=== PATIENT | male | born 1955 | race Two or more races ===

== ENCOUNTER 2016-05-29 14:50 | Outpatient (CLI) | payer OTHER ==
[2016-05-29] MEDS ORDERED: IOPAMIDOL-300 100 ML VIAL IVP ONE (17:45)
[2016-05-29] MEDS ORDERED: IOPAMIDOL-300 50 ML VIAL PO ONE (17:45)
== END 2016-05-29 14:51 | disposition home or self-care (01) ==
DX: K52.9 Noninfective gastroenteritis and colitis, unspecified (principal); Z98.890 Other specified postprocedural states
CPT/HCPCS: 74177; 82565; Q9967

== ENCOUNTER 2016-09-18 09:30 | Outpatient (CLI) | payer OTHER | END 2016-09-18 09:31 | disposition home or self-care (01) | DX: R53.83 Other fatigue (principal); Z12.5 Encounter for screening for malignant neoplasm of prostate; D64.9 Anemia, unspecified ==

== ENCOUNTER 2017-11-04 06:12 | Outpatient (CLI) | END 2017-11-04 06:13 | disposition home or self-care (01) | CPT/HCPCS: 36415; 74177; 82565; Q9967 ==

== ENCOUNTER 2018-03-11 08:41 | Day surgery (SDC) | payer OTHER ==
[~2018-03-11 08:41] MED LIST: ceFAZolin 2 GM/50 ML 2 GM/50 ML BAG IV ONE
[2018-03-11] MEDS ORDERED: LACTATED RINGERS 1,000 ML IV ONE ×2 (09:00→11:58)
[2018-03-11] MEDS ORDERED: BUPIVACAINE 0.5% PF 30 ML VIAL ONE (09:03)
--- NOTE | 2018-03-11 09:25 | ANESTHESIA ---
Pre-Anesthesia VS, & Labs - Diagnosis Right inguinal hernia - Procedure Right inguinal hernia repair Vital Signs: Temp Pulse Resp BP Pulse Ox 36.2 C L 71 16 155/80 H 98 03/11/18 09:03 03/11/18 09:03 03/11/18 09:03 03/11/18 09:03 03/11/18 09:03 Height 5 ft 9 in Weight (kg) 81.8 kg Body Mass Index 25.4 - NPO >8 hours Home Medications and Allergies Home Medications: Ambulatory Orders Gabapentin [Neurontin] 300 mg PO TID 03/05/18 traMADol [Ultram] 50 mg PO BID 03/05/18 Mv-Mn/FA/Vit K/Lycop/Lut/Coq10 [Daily Multivitamin Capsule] 1 each PO DAILY 03/11/18 Gabapentin [Neurontin] 300 mg PO TID 03/05/18 traMADol [Ultram] 50 mg PO BID 03/05/18 Mv-Mn/FA/Vit K/Lycop/Lut/Coq10 [Daily Multivitamin Capsule] 1 each PO DAILY 03/11/18 Allergies/Adverse Reactions: Allergies Allergy/AdvReac Type Severity Reaction Status Date / Time ketorolac tromethamine * Allergy Severe anaphylaxis, Verified 01/18/16 21:19 [From Toradol] loss of consciousness sulfamethoxazole Allergy Rash Verified 01/18/16 21:19 [From Septra] trimethoprim [From Septra] Allergy Rash Verified 01/18/16 21:19 Anes History & Medical History - Anesthetic History Anesthesia Complications: reports: No previous complications - Medical History Cardiovascular: reports: None Pulmonary: reports: None Gastrointestinal: reports: Ulcers, Other (Had perforated ulcer with septic shock and cardiac arrest.) Urinary: reports: None, Other (history of prostate cancer) Neuro: reports: None Musculoskeletal: reports: Osteoporosis, Chronic back pain Endocrine/Autoimmune: reports: None Blood Disorders: reports: None Skin: reports: None Smoking Status: Current every day smoker (50 pk year history) Psychosocial: reports: No issues indicated - Surgical History General: Gastric surgery (perforated ulcer repair), Colonoscopy Urologic: Prostatic surgery Orthopedic: Other (Right femur fracture/ IM sathish) Exam General: Alert, Oriented x3, Cooperative, No acute distress Dental: Dentures full Upper Mouth Openin Fingerbreadth Neck Mobility: Normal Mallampati classification: II Thyromental Distance: 4-6 cm Respiratory: Lungs clear, Normal breath sounds, No respiratory distress, No accessory muscle use Cardiovascular: Regular rate, Normal S1, Normal S2, No murmurs Mental/Cognitive Status: Alert/Oriented X3, Normal for patient Cognitive Status: Within normal limits Plan Anesthesia Type: General Consent for Procedure(s) Verified and Reviewed: Yes Code Status: Attempt Resuscitation ASA classification: 2-Mild systemic disease Is this case an emergency?: No
[2018-03-11] MEDS ORDERED: PROPOFOL 200 MG/20 ML VIAL IVP ONE (10:00)
[2018-03-11] MEDS ORDERED: LIDOCAINE-MPF 2% 5 ML VIAL IM ONE (10:00)
[2018-03-11] MEDS ORDERED: fentaNYL 100 MCG/2 ML VIAL IVP ONE (10:00)
[2018-03-11] MEDS ORDERED: DEXAMETHASONE 4 MG/ML VIAL IVP ONE (10:00)
[2018-03-11] MEDS ORDERED: ONDANSETRON 4 MG/2 ML VIAL IVP ONE (10:00)
[2018-03-11] MEDS ORDERED: MIDAZOLAM 2 MG/2 ML VIAL IVP ONE (10:00)
[2018-03-11] MEDS ORDERED: BUPIVACAINE 0.5% PF 30 ML VIAL INFIL ONE (10:28)
[2018-03-11] MEDS ORDERED: HYDROcod/ACETAM 5/325 MG TABLET PO PRN (11:24)
[2018-03-11] MEDS ORDERED: HYDROmorphone 0.5 MG/0.5 ML SYRINGE IVP PRN (11:24)
[2018-03-11] MEDS ORDERED: ONDANSETRON 4 MG/2 ML VIAL IVP PRN (11:24)
--- NOTE | 2018-03-11 11:24 | OPERATIVE REPORT ---
Operative Report - General Procedure Date: 03/11/18 Planned Procedure: Right inguinal herniorrhaphy Pre-Op Diagnosis: Right inguinal hernia Procedure Performed: Right indirect inguinal herniorrhaphy with mesh and excision cord lipoma Post Op Diagnosis: Right indirect inguinal hernia and cord lipoma - Procedure Note Primary Surgeon: Lonnie Wallace MD Anesthesia Provider: Tanvi Burch CRNA Anesthesia Technique: General ET tube, Local (30 mL of half percent Marcaine) IV Fluids (mL): 600 Estimated Blood Loss (mL): 5 Complications: None. - Other Other Information/Narrative: OPERATIVE DESCRIPTION/REPORT: After verbal and written informed consent was obtained detailing the risks of infection, bleeding requiring transfusion with its risks, nerve injury, and , and after I met with the patient confirming the surgery and the site of the surgery and after initialing the site of the surgery with a surgical marker, the patient was brought to the operative suite and placed supine on the operating table. Great care was taken to avoid pressure points to prevent pressure necrosis or nerve injury. Monitoring devices were applied along with TEDs and pneumatic compressive stockings (to prevent DVT). The patient received preoperative antibiotics for surgical prophylaxis. Tanvi Burch CRNA sedated and anesthetized the patient for the entire procedure. The patient was prepped and draped in the usual sterile manner. With the patient draped my initials were clearly visible. A "time in" then confirmed that the patient was identified with 3 identifiers (name, date and medical record number), the history and physical was in the chart, the signed consent confirming the procedure was in the chart, the patient was in the correct position, the aforementioned prophylactic measures were in place or given, we had the correct personnel and equipment to complete the procedure and that anesthesia, surgery and nursing were given an opportunity to express any concerns. With the agreement of everyone in the room, we proceeded with the operation. A standard inguinal incision was made and dissection was carried down to the external oblique aponeurosis using a combination of Metzenbaum scissors and Bovie electrocautery. The external oblique aponeurosis was cleared of overlying adherent tissue, and the external ring was delineated. The external oblique was the incised with a scalpel and this incision was carried out to the external ring using Metzenbaum scissors. Having exposed the inguinal canal, the cord structures were from the canal using blunt dissection, and a Apple drain was placed around the cord structures at the level of the pubic tubercle. This [place] drain was then used to retract the cord structures as needed. Adherent cremasteric muscle was dissected free from the cord using Bovie electrocautery. The cord was then explored using a combination of sharp and blunt dissection, and the sac was found anteromedially to the cord structures. The sac was dis sected free from the cord structures using a combination of blunt dissection and Bovie electrocautery. Once preperitoneal fat was encountered, the dissection stopped and the sac was high ligated with a 2-0 PDS, transected, the stump cauterized and allowed to retract back into the abdominal cavity and a medium Covidien plug (Ref# [id number], Lot# [id number], use date 2022-06-12) inserted into the internal ring. The plug was secured to the internal ring by interrupted 2-0 PDS sutures. The Covidien enlay patch was then placed on the floor of the inguinal canal and secured in place using interrupted 0 PDS sutures to the conjoined tendon superiorly, pubic tubercle medially, and shelving edge inferiorly. By reinforcing the floor with the enlay patch, a new internal ring was thus formed. A medium cord lipoma was noted and excised using serial application of Bovie electrocautery. Hemostasis was noted to be present. The Apple drain was removed. The wound was then irrigated using sterile mayra ine, and hemostasis was obtained using Bovie electrocautery. The incision in the external oblique was approximated using a 3-0 Vicryl in a running fashion, thus reforming the external ring. The fascia and skin was then injected with the 1/2% marcaine for assisted pain control. The skin incision was approximated with 4-0 Monocryl in a subcuticular fashion. The skin was prepped with benzoin and steristrips were applied. At this point a time out was performed that confirmed that all the counts were correct, the procedure that was performed, the blood loss, the IV fluids administered, and the patients condition. A dressing was then applied. Gentle downward traction ensured that the testes were well seated in the scrotum. Having tolerated the procedure well, the patient was taken to short stay in good and stable condition. Dragjossie disclaimer: This document was created in part using voice recognition technology. Because of the inherent limitations of the system ([employer]'s Dragon Dictate user manual states that the licensee understands that speech recognition is a statistical process and that recognition errors are inherent in the process), occasional same sounding word substitutions and grammatical errors do occur and persist despite proofreading. Please read this document for context.
[2018-03-11] MEDS: fentaNYL 100 MCG/2 ML VIAL ONE ×2 (11:30→11:48)
[2018-03-11] MEDS ORDERED: ACETAMINOPHEN 1,000 MG/100 ML 100 ML IV ONE ×2 (11:38→12:34)
[2018-03-11] MEDS ORDERED: HYDROcod/ACETAM 5/325 MG TABLET ONE (12:03)
[2018-03-11 13:08] VITALS: BP 147/82
== END 2018-03-11 08:42 | disposition home or self-care (01) ==
LOC: SDS 08:41
PROVIDERS: ATTEND Surgery
PROC: 0VBF0ZZ Excision of Right Spermatic Cord, Open Approach (ICD-10-PCS; 2018-03-11)
PROC: 0YU50JZ Supplement Right Inguinal Region with Synthetic Substitute, Open Approach (ICD-10-PCS; principal; 2018-03-11 09:45)
DX: K40.90 Unilateral inguinal hernia, without obstruction or gangrene, not specified as recurrent (principal); D17.6 Benign lipomatous neoplasm of spermatic cord; F17.210 Nicotine dependence, cigarettes, uncomplicated; Z85.46 Personal history of malignant neoplasm of prostate
CPT/HCPCS: 49505; 55520; A9270; J0131; J0690; J7120

== ENCOUNTER 2018-06-28 13:14 | Emergency (ER) | payer OTHER ==
--- NOTE | 2018-06-28 14:07 | XRAY Report ---
Reason: sob Procedure Date: 06/28/2018 Accession Number: [id number] / [id number] Procedure: XR - Chest 2 View X-Ray CPT Code: 44276 FULL RESULT: EXAM: CHEST RADIOGRAPHY EXAM DATE: 06/28/2018 01:38 PM. CLINICAL HISTORY: Shortness of breath. COMPARISON: CHEST 2 VIEW PA/LAT 02/01/2015 12:46 PM. TECHNIQUE: 2 views. FINDINGS: Lungs/Pleura: No focal opacities evident. No pleural effusion. No pneumothorax. Normal volumes. Mediastinum: Heart and mediastinal contours are unremarkable. Other: There are smooth anterior bridging osteophytes of the lower thoracic spine compatible with diffuse idiopathic skeletal hyperostosis. No acute osseous abnormality. IMPRESSION: No acute cardiopulmonary abnormality. RADIA
--- NOTE | 2018-06-28 14:23 | ED Physician Documentation ---
PD HPI URI - Stated complaint Stated Complaint: SOA/CHILLS - Chief complaint Chief Complaint: Resp - History obtained from History obtained from: Patient - History of Present Illness Timing - onset: How many days ago (4) Timing duration: Days (4) Timing details: Abrupt onset, Still present Associated symptoms: Productive cough, Chest pain (hurts with coughing.), Dyspnea. No: Fever Contributing factors: COPD / asthma. No: Sick contact Worsened by: Activity Similar symptoms before: Has not had sx before Review of Systems Constitutional: reports: Myalgias. denies: Fever Nose: denies: Rhinorrhea / runny nose, Congestion Throat: denies: Sore throat Cardiac: reports: Chest pain / pressure (hurts with coughing). denies: Palpitations, Pedal edema, Calf pain Respiratory: reports: Dyspnea, Cough, Wheezing GI: denies: Nausea, Vomiting, Diarrhea Skin: denies: Rash Neurologic: reports: Generalized weakness. denies: Focal weakness, Numbness PD PAST MEDICAL HISTORY - Past Medical History Cardiovascular: None Respiratory: None Neuro: None Endocrine/Autoimmune: None GI: Ulcers, Other (Had perforated ulcer with septic shock and cardiac arrest.) : None, Other (history of prostate cancer) HEENT: None Psych: None Musculoskeletal: Osteoporosis, Chronic back pain Derm: None - Past Surgical History Past Surgical History: Yes General: Gastric surgery (perforated ulcer repair), Colonoscopy Ortho: Other (Right femur fracture/ IM sathish) - Present Medications Home Medications: Ambulatory Orders Medication Instructions Recorded Confirmed Gabapentin [Neurontin] 300 mg PO TID 03/05/18 03/11/18 traMADol [Ultram] 50 mg PO BID 03/05/18 03/11/18 Mv-Mn/FA/Vit K/Lycop/Lut/Coq10 1 each PO DAILY 03/11/18 03/11/18 [Daily Multivitamin Capsule] Albuterol Sulf [Ventolin Hfa 2 - 3 puffs INH Q4HR PRN #1 inhaler 06/28/18 Inhaler] Benzonatate [Tessalon Perle] 100 - 200 mg PO TID PRN #30 capsule 06/28/18 Dexamethasone [Decadron] 4 mg PO DAILY #5 tablet 06/28/18 Doxycycline Hyclate 100 mg PO BID #14 capsule 06/28/18 Ondansetron Odt [Zofran] 4 mg TL Q6H PRN #10 tablet 06/28/18 - Allergies Allergies/Adverse Reactions: Allergies Allergy/AdvReac Type Severity Reaction Status Date / Time ketorolac tromethamine * Allergy Severe anaphylaxis, Verified 06/28/18 13:24 [From Toradol] loss of consciousness sulfamethoxazole Allergy Rash Verified 06/28/18 13:24 [From Septra] trimethoprim [From Septra] Allergy Rash Verified 06/28/18 13:24 - Social History Does the pt smoke?: Yes Smoking Status: Current every day smoker (50 pk year history) Does the pt drink ETOH?: No Does the pt have substance abuse?: No - Immunizations Immunizations are current?: Yes PD ED PE NORMAL - Vitals Vital signs reviewed: Yes - General General: Alert and oriented X 3, No acute distress, Well developed/nourished - HEENT HEENT: Pharynx benign - Neck Neck: Supple, no meningeal sign, No adenopathy - Cardiac Cardiac: RRR, No murmur - Respiratory Respiratory: No: Clear bilaterally (diffuse moderate wheezing. with some coarse wet sounds right perihilar area. No crackles in the bases. ) - Abdomen Abdomen: Soft, Non tender - Derm Derm: Normal color, Warm and dry - Extremities Extremities: No tenderness to palpate, Normal ROM s pain, No edema, No calf tenderness / cord - Neuro Neuro: Alert and oriented X 3, No motor deficit, Normal speech Results - Vitals Vitals: Oxygen O2 Source Room air - Labs Labs: Laboratory Tests 06/28/18 13:28 Influenza A (Rapid) Negative Influenza B (Rapid) Negative - Rads (name of study) chest xray Radiology: Prelim report reviewed (no pneumonia), EMP read contemporaneously, See rad report PD MEDICAL DECISION MAKING - ED course Complexity details: reviewed results, re-evaluated patient (improved with nebs and feeling better breathing. No clinical signs of CHF and has mainly cough and wheeze. ), considered differential (could be viral and likely RSV or such, but symptoms mainly bronchial with wheezing, so consider bacterial instead. ), d/w patient Departure - Departure Disposition: 01 Home, Self Care Clinical Impression: Flu-like symptoms, Bronchitis Condition: Stable Record reviewed to determine appropriate education?: Yes Instructions: ED Upper Resp Infec Abx Tx Follow-Up: Angel Corral MD [Primary Care Provider] - Prescriptions: Albuterol Sulf [Ventolin Hfa Inhaler] 2 - 3 puffs INH Q4HR PRN #1 inhaler PRN Reason: Shortness Of Air/Wheezing Benzonatate [Tessalon Perle] 100 - 200 mg PO TID PRN #30 capsule PRN Reason: Cough Dexamethasone [Decadron] 4 mg PO DAILY #5 tablet Doxycycline Hyclate 100 mg PO BID #14 capsule Ondansetron Odt [Zofran] 4 mg TL Q6H PRN #10 tablet PRN Reason: Nausea / Vomiting Comments: It sounds flulike the illness you have. This commonly is viral though with the particular cough and wheeze that you are having, we would be concerned for potential bacterial bronchitis as well. Drink lots of fluids. Ondansetron if needed for nausea. Tessalon for cough. Use an albuterol inhaler 2-3 puffs 4 times a day for the wheezing and trouble breathing and extra times as needed if you are feeling tight breathing. Decadron steroid for the inflammation and of the airways will help quite a bit daily for 5 days. Doxycycline antibiotic for potential bacterial infection as directed. Recheck if not improving over the next 2-3 days and return sooner if worsening. Discharge Date/Time: 06/28/18 16:37
[2018-06-28] MEDS ORDERED: ALBUTEROL NEB 2.5 MG/3 ML INH STA (14:30)
[2018-06-28] MEDS ORDERED: DIPHENOX/ATROPINE 2.5/0.025 MG TABLET PO STA (14:30)
[2018-06-28] MEDS ORDERED: DEXAMETHASONE 10 MG/ML VIAL PO STA (14:30)
[2018-06-28] MEDS ORDERED: ONDANSETRON ODT 4 MG TABLET TL STA (14:30)
[2018-06-28] MEDS ORDERED: BENZONATATE 100 MG CAPSULE PO STA (14:30)
[2018-06-28] MEDS ORDERED: IPRATROPIUM/ALBUTEROL 3 ML NEB INH STA (15:45)
[2018-06-28] MEDS ORDERED: DOXYCYCLINE 100 MG TABLET PO STA (15:45)
[2018-06-28 16:37] VITALS: BP 106/66
== END 2018-06-28 16:37 | disposition home or self-care (01) ==
LOC: ED 13:14
DX: J40 Bronchitis, not specified as acute or chronic (principal); F17.200 Nicotine dependence, unspecified, uncomplicated
CPT/HCPCS: 71046; 87275; 87276; 94640; 94664; 99283; A9270; Q0162

== ENCOUNTER 2018-07-02 09:43 | Inpatient (IN) | payer OTHER ==
[2018-07-02] MEDS ORDERED: SODIUM CHLORIDE 0.9% 1,000 ML IV STA (09:58)
--- NOTE | 2018-07-02 10:25 | ED Physician Documentation ---
History of Present Illness - Stated complaint Stated Complaint: UNABLE TO EAT/WEAKNESS - Chief complaint Chief Complaint: Resp - History obtained from History obtained from: Patient - History of Present Illness Timing: How many days ago (several) Pain level max: 0 Pain level now: 0 - Additonal information Additional information: 62-year-old male presents to the emergency department stating he has been sick for the past week or so, seen here, diagnosed with bronchitis and placed on doxycycline. States he is feeling worse and worse. Has not been eating and drinking for the past week. States he feels very weak now. Nothing makes it better or worse Review of Systems Ten Systems: 10 systems reviewed and negative Constitutional: reports: Fever (Subjective). denies: Chills Nose: reports: Rhinorrhea / runny nose, Congestion Throat: denies: Sore throat Cardiac: denies: Chest pain / pressure Respiratory: reports: Cough, Wheezing GI: denies: Abdominal Pain, Nausea, Vomiting, Diarrhea Skin: denies: Rash Musculoskeletal: denies: Neck pain, Back pain Neurologic: denies: Headache PD PAST MEDICAL HISTORY - Past Medical History Cardiovascular: None Respiratory: None Neuro: None Endocrine/Autoimmune: None GI: Ulcers, Other : None, Other HEENT: None Psych: None Musculoskeletal: Osteoporosis, Chronic back pain Derm: None - Past Surgical History Past Surgical History: Yes General: Gastric surgery, Colonoscopy Ortho: Other - Present Medications Home Medications: Ambulatory Orders Medication Instructions Recorded Confirmed Gabapentin [Neurontin] 300 mg PO BID 03/05/18 07/02/18 traMADol [Ultram] 50 mg PO TID PRN 03/05/18 07/02/18 Mv-Mn/FA/Vit K/Lycop/Lut/Coq10 1 each PO DAILY 03/11/18 07/02/18 [Daily Multivitamin Capsule] Albuterol Sulf [Ventolin Hfa 2 puffs INH Q4HR PRN 07/02/18 07/02/18 Inhaler] Lisinopril [Zestril] 10 mg PO DAILY 07/02/18 07/02/18 Triamterene/Hydrochlorothiazid 1 each PO DAILY 07/02/18 07/02/18 [Triamterene-Hctz 37.5-25 mg Cp] - Allergies Allergies/Adverse Reactions: Allergies Allergy/AdvReac Type Severity Reaction Status Date / Time ketorolac tromethamine * Allergy Severe anaphylaxis, Verified 06/28/18 13:24 [From Toradol] loss of consciousness sulfamethoxazole Allergy Rash Verified 06/28/18 13:24 [From Septra] trimethoprim [From Septra] Allergy Rash Verified 06/28/18 13:24 - Social History Does the pt smoke?: Yes Smoking Status: Current every day smoker Does the pt drink ETOH?: No Does the pt have substance abuse?: No - Immunizations Immunizations are current?: Yes PD ED PE NORMAL - Vitals Vital signs reviewed: Yes - General General: Alert and oriented X 3, No acute distress, Well developed/nourished - HEENT HEENT: PERRL, Ears normal, Pharynx benign, Other (Dry lips and tongue) - Neck Neck: Supple, no meningeal sign - Cardiac Cardiac: RRR - Respiratory Respiratory: No respiratory distress, Other (Wheezing bilaterally) - Abdomen Abdomen: Soft, Non tender, Non distended - Derm Derm: Warm and dry, No rash - Extremities Extremities: No edema, No calf tenderness / cord - Neuro Neuro: Alert and oriented X 3 - Psych Psych: Normal mood, Normal affect Results - Vitals Vitals: Vital Signs - 24 hr 07/02/18 07/02/18 07/02/18 09:49 11:09 11:21 Temperature 35.9 C L Heart Rate 86 76 91 Respiratory 22 18 18 Rate Blood Pressure 105/69 125/85 H O2 Saturation 98 98 07/02/18 12:33 Temperature Heart Rate 94 Respiratory 16 Rate Blood Pressure 128/86 H O2 Saturation 98 Oxygen O2 Source Room air - Labs Labs: Laboratory Tests 07/02/18 07/02/18 07/02/18 10:29 10:29 11:08 WBC 16.3 H RBC 5.40 Hgb 16.4 Hct 47.3 MCV 87.7 MCH 30.4 MCHC 34.6 RDW 14.3 Plt Count 326 MPV 7.8 Neut # (Auto) 14.7 H Lymph # (Auto) 0.9 L Sac # (Auto) 0.6 Eos # (Auto) 0.0 Baso # (Auto) 0.0 Absolute Nucleated RBC 0.00 Nucleated RBC % 0.0 Manual Slide Review Indicated WBC Morphology Platelet Estimate NORMAL (130-450,000) Platelet Morphology NORMAL APPEARANCE RBC Morph Micro Appear NORMAL APPEARANCE Sodium 131 L Potassium 4.5 Chloride 96 L Carbon Dioxide 13 L Anion Gap 22.0 H BUN 184 H* Creatinine 6.8 H Estimated GFR (MDRD) 8 L Glucose 112 H Calcium 9.4 Total Bilirubin 0.7 AST 19 ALT 20 Alkaline Phosphatase 76 Total Protein 9.4 H Albumin 4.8 Globulin 4.6 H Albumin/Globulin Ratio 1.0 Lipase 37 Urine Color YELLOW Urine Clarity CLEAR Urine pH 5.0 Ur Specific [place] 1.025 Urine Protein NEGATIVE Urine Glucose (UA) NEGATIVE Urine Ketones NEGATIVE Urine Occult Blood SMALL H Urine Nitrite NEGATIVE Urine Bilirubin NEGATIVE Urine Urobilinogen 0.2 (NORMAL) Ur Leukocyte Esterase NEGATIVE Urine RBC 0-5 Urine WBC 0-3 Ur Squamous Epith Cells RARE Squamous Urine Bacteria Rare Ur Microscopic Review INDICATED Urine Culture Comments NOT INDICATED 07/02/18 13:29 WBC RBC Hgb Hct MCV MCH MCHC RDW Plt Count MPV Neut # (Auto) Lymph # (Auto) Sac # (Auto) Eos # (Auto) Baso # (Auto) Absolute Nucleated RBC Nucleated RBC % Manual Slide Review WBC Morphology Platelet Estimate Platelet Morphology RBC Morph Micro Appear Sodium 135 Potassium 4.6 Chloride 108 Carbon Dioxide 13 L Anion Gap 14.0 H BUN 173 H* Creatinine 6.1 H Estimated GFR (MDRD) 9 L Glucose 136 H Calcium 8.1 L Total Bilirubin AST ALT Alkaline Phosphatase Total Protein Albumin Globulin Albumin/Globulin Ratio Lipase Urine Color Urine Clarity Urine pH Ur Specific [place] Urine Protein Urine Glucose (UA) Urine Ketones Urine Occult Blood Urine Nitrite Urine Bilirubin Urine Urobilinogen Ur Leukocyte Esterase Urine RBC Urine WBC Ur Squamous Epith Cells Urine Bacteria Ur Microscopic Review Urine Culture Comments PD MEDICAL DECISION MAKING - ED course Complexity details: reviewed results, re-evaluated patient, considered differential, d/w patient, d/w family ED course: 62-year-old male who presents to the emergency department with what appears to be severe dehydration leading to much more severe acute renal failure and uremia. Discussed the case with Dr. Del Real for admission he request repeat electrolytes prior to admission. This was performed and they are improving as expected, therefore will admit the patient here. Bladder scan revealed an empty bladder. No evidence of urinary retention. Patient admitted This document was made in part using voice recognition software. While efforts are made to proofread this document, sound alike and grammatical errors may occur. Departure - Departure Disposition: [facility] DC/Xfer Clinical Impression: Uremia Acute renal failure Qualifiers: Acute renal failure type: unspecified Qualified Code(s): N17.9 - Acute kidney failure, unspecified Condition: Stable Discharge Date/Time: 07/02/18 14:54
[2018-07-02 10:44] LABS: BASOPHILS % (AUTO) 0.2 %; HGB - HEMOGLOBIN 16.4 g/dL (14.0-18.0); LYMPHOCYTES # (AUTO) 0.9 10^3/uL (1.5-3.5); LYMPHOCYTES % (AUTO) 5.4 %; MEAN CORPUSCULAR HEMOGLOBIN 30.4 pg (27.0-31.0); MEAN CORPUSCULAR HGB CONC 34.6 g/dL (32.0-36.0); MEAN CORPUSCULAR VOLUME 87.7 fL (80.0-94.0); MEAN PLATELET VOLUME 7.8 fL (7.4-11.4); MONOCYTES # (AUTO) 0.6 10^3/uL (0.0-1.0); MONOCYTES % (AUTO) 3.8 %; NEUTROPHILS # (AUTO) 14.7 10^3/uL (1.5-6.6); NEUTROPHILS % (AUTO) 90.6 %; PLT - PLATELET COUNT 326 10^3/uL (130-450); RED CELL DISTRIBUTION WIDTH 14.3 % (12.0-15.0); WHITE BLOOD COUNT 16.3 x10^3/uL (4.8-10.8)
[2018-07-02] MEDS ORDERED: IPRATROPIUM/ALBUTEROL 3 ML NEB INH STA (10:59)
[2018-07-02] MEDS ORDERED: predniSONE 20 MG TABLET PO STA (10:59)
[2018-07-02 11:00] LABS: PLATELET ESTIMATE, MANUAL NORMAL (130-450,000) (NORMAL); PLATELET MORPHOLOGY NORMAL APPEARANCE (NORMAL); RBC MORPHOLOGY (MULTIPLE) NORMAL APPEARANCE (NORMAL)
[2018-07-02 11:08] LABS: ALBUMIN 4.8 g/dL (3.2-5.5); BILIRUBIN,TOTAL 0.7 mg/dL (0.2-1.0); CALCIUM 9.4 mg/dL (8.5-10.3); CREATININE 6.8 mg/dL (0.6-1.2); TOTAL PROTEIN 9.4 g/dL (6.7-8.2)
[2018-07-02 11:17] LABS: BILIRUBIN,URINE NEGATIVE (NEGATIVE); GLUCOSE, URINE (UA) NEGATIVE (NEGATIVE); KETONES,URINE (UA) NEGATIVE (NEGATIVE); LEUKOCYTE ESTERASE, URINE NEGATIVE (NEGATIVE); NITRITE,URINE NEGATIVE (NEGATIVE); OCCULT BLOOD,URINE SMALL (NEGATIVE); PROTEIN,URINE NEGATIVE (NEGATIVE); UROBILINOGEN,URINE 0.2 (NORMAL) E.U./dL (NORMAL)
[2018-07-02 11:19] LABS: CLARITY,URINE CLEAR (CLEAR)
[2018-07-02 11:22] LABS: BACTERIA,URINE Rare /HPF (None Seen); RBC,URINE 0-5 /HPF (0-5); SQUAMOUS EPITHELIAL CELL,UR RARE Squamous (<= Few)
[2018-07-02] MEDS ORDERED: SODIUM CHLORIDE 0.9% 1,000 ML IV ONE (11:33)
[2018-07-02] MEDS ORDERED: LACTATED RINGERS 1,000 ML IV STA (11:37)
[2018-07-02 13:54] LABS: CALCIUM 8.1 mg/dL (8.5-10.3); CREATININE 6.1 mg/dL (0.6-1.2)
[2018-07-02] MEDS ORDERED: SODIUM CHLORIDE FLUSH 0.9% 10 ML SYRINGE IVP PRN (14:06)
--- NOTE | 2018-07-02 14:18 | HISTORY & PHYSICAL EXAMINATION ---
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 He was diagnosed with a viral syndroe in Ed 06/28 (althogh Rapid antigen test negative, no molecular test her) and was discharged with tessalon for cough, albuterol inhaler prn, and doxycycline. (He states now that he also had bad diarrhea at that time which has resolved) Of note He did not have labs drawn at that time, CXR neg acute at that time, no hypotension, nor fever atthat time He presents to the ED today with persistent anorexia "not eating or drinking much", no nausa / vomiting , no fever, chills, no persistent diarrhea, "just hasnt felt better since 06/28 "thought I was dehydrated". No near syncope or light headedness Labs in the ED remarkable for acute kidney injury with BUn/Cr 184/ 6.8, (Of note on 11/04/17 Cr 1.1)normal potassium, hyponatremia Na 131, Co213 w/ initial anion gap 22, WBC 16K w/o left shift, no findings c/w infection, Urnalysis in ED w/SG 1.025, small occult blood, no sigynificant pyuria, nor bacuturia microscopic not done (will order to check for casts) RE chronic medical problems that put patient at risk; no DM, controlled HTN (and as above recent normal Cr) Of note re culprit meds; Patient is on thiazide and ACEI Denies NSAIDS, no other nephrotoxins, After 3 liters in ED , he is demonstrating some improvement w/ BuN/Cr 173/6.1, and althoguh bicarb still 13 after 3L, Anion gap w/ chloride repletion closing; now 14 No known CHF that would cause poor forward flow (Echo 2014; EF 55-65%, mild concentric LVH, Could not adequatly asses fro WMA, no significant vlvular dysfxn at that time History - Past Medical History Cardiovascular: reports: None, Hypertension Respiratory: reports: None, Other (recent ? bronchitis as per HPI (06/28)) Neuro: reports: None Endocrine/Autoimmune: reports: None GI: reports: Ulcers (Bleeding ulcer / + H pylori 2014 requred surgery, with cardiac arrest), Other (incarcerated ventral incision hernia 02/2016) : reports: None, Other (Prostate Cancer s/p radiation seeds) HEENT: reports: None Psych: reports: None Musculoskeletal: reports: Osteoporosis, Chronic back pain Derm: reports: None MRSA Hx?: No - Past Surgical History General: reports: Gastric surgery, Colonoscopy Ortho: reports: Other - Family & Social History Living arrangement: At home, Other (Has a friend who is a nurse) Living Situation: Alone Social History Notes: From [place], has lived on [facility] since mid , was in the [employer] here, 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 Has 2 daughters, a few grand children who he baby sits for regularly (without fatigue, one in kindergarden, one a toddler. "cant find the right one" - Substance History Use: Uses substance without health or social issues: Tobacco (quit by use of Chantix this year, ~ 40 yrs of 1/2 PPD), Other (NO alchohol, no illicits) - POLST Patient has POLST: No Meds/Allgy - Home Medications Home Medications: Ambulatory Orders Medication Instructions Recorded Confirmed Gabapentin [Neurontin] 300 mg PO BID 03/05/18 07/02/18 traMADol [Ultram] 50 mg PO TID PRN 03/05/18 07/02/18 Mv-Mn/FA/Vit K/Lycop/Lut/Coq10 1 each PO DAILY 03/11/18 07/02/18 [Daily Multivitamin Capsule] Albuterol Sulf [Ventolin Hfa 2 puffs INH Q4HR PRN 07/02/18 07/02/18 Inhaler] Lisinopril [Zestril] 10 mg PO DAILY 07/02/18 07/02/18 Triamterene/Hydrochlorothiazid 1 each PO DAILY 07/02/18 07/02/18 [Triamterene-Hctz 37.5-25 mg Cp] - Allergies Allergies/Adverse Reactions: Allergies Allergy/AdvReac Type Severity Reaction Status Date / Time ketorolac tromethamine * Allergy Severe anaphylaxis, Verified 06/28/18 13:24 [From Toradol] loss of consciousness sulfamethoxazole Allergy Rash Verified 06/28/18 13:24 [From Septra] trimethoprim [From Septra] Allergy Rash Verified 06/28/18 13:24 Review of Systems - Constitutional Constitutional: reports: Malaise, Other (no acute change in activity tolerance (other than since last week); 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 denies: Ear pain, Vertigo - Cardiovascular Cariovascular: denies: Palpitations, Chest pain, Edema, Lightheadedness, Syncope - Respiratory Respiratory: reports: Sputum production (rare cough, "maybe once/ day"). denies: Wheezing, Orthopnea, SOB at rest - Gastrointestinal Gastrointestinal: reports: Poor appetite (continues anorexic since last week, but no NV). denies: Abdominal pain, Abdominal distention, Constipation, Diarrhea, Nausea, Vomiting - Genitourinary Genitourinary: denies: Dysuria, Frequency, Urgency, Hematuria - Musculoskeletal Musculoskeletal: reports: Other (chronic pain of heels and hips/ on gabapentin (long work in construction)) - Neurological Neurological: reports: General weakness. denies: Focal weakness, Headache, Dizziness - Psychiatric Psychiatric: denies: Depression, Anxiety - Endocrine Endocrine: denies: Polyuria, Polydypsia, Intolerance to cold, Intolerance to heat Exam - Vital Signs Reviewed Vital Signs: Yes Vital Signs: Vital Signs x48h Temp Pulse Resp BP Pulse Ox 07/02/18 12:33 94 16 128/86 H 98 07/02/18 11:21 91 18 07/02/18 11:09 76 18 125/85 H 98 07/02/18 09:49 35.9 C L 86 22 105/69 98 afebrile, HR 90's, 105/69 on presentation,; 142/77 after 3 liters - Physical Exam General Appearance: positive: No acute distress, Other (awake, alert, non toxic (feels a bit better after 3L)) Eyes Bilateral: positive: PERRL, EOMI, Other (nonmuddy sclera) Neck: positive: Nml inspection. negative: Lymphadenopathy (R), Lymphadenopathy (L), Carotid bruit Respiratory: positive: No respiratory distress (Unlabored resps on Room Air, no cough, Sl inspiratory low pitched crackles L base) Cardiovascular: positive: Regular rate & rhythm, No murmur Abdomen: positive: Nml bowel sounds, No distention, Other (Well healed midline scar from gastric resection). negative: Tenderness Back: negative: CVA tenderness (R), CVA tenderness (L) Skin: positive: Warm, Dry. negative: Diaphoresis, Pallor Extremities: negative: Pedal edema Neurologic/Psychiatric: positive: Oriented x3, Motor nml, Sensation nml, Mood/affect nml, Other (extraocular movements intact, CN 2-12 intact) Conclusion/Plan - Problem List (1) Acute kidney injury Conclusion/Plan: Most recent labs are from October 2017, so , difficult to tell if this is acute; related to recent ? viral illness last week Work up thus far suggestive of prerenal SOHAN due to acute ?viral illness, and had Gi losses last week s well w/ diarhea last week/ not taking PO well, BUt contininuing to take ACEI and HCTZ THere are RARE case reports of SOHAN w/ Doxycycline which he took this week but DOUBT cause (can cause elvated BUN but doubt contributing to this case) No findings suggesive of volume overload to suggest CKD / Demonstrating some response to IV volume repletion Check renal ultrasound (hisotry of CA Prostate to r/o obstructive uropathy) Continue IVF IF not continuing to improve w/ volume will send urine lytes (e.g Na, Cr ) check urine microscopic ? casts Recheck in AM HOLD HCTZ and ACEI! No NSAIDs (not taking at home) Do not see need to check echo re: ? poor systolic function as exam/ history otherwise NOT suggestive of CHF/HFrEF VTE prophylaxis; no medical (Rx) given reduced GFR SCD's (2) Hypertension Conclusion/Plan: reasonable control holding ACI, HCTZ allow relative hypertension for renal perfusion Qualifiers: Hypertension type: other secondary hypertension Qualified Code(s): I15.8 - Other secondary hypertension (3) History of prostate cancer Conclusion/Plan: doubt relevant, but checking us doubt obstruction since able to void with hydration (but BUN Cr enough that need to chek for hydronephrosis) (4) Peripheral neuropathy Conclusion/Plan: Holding gabapentin given reduced GFR Likely will be able to resume at home dose once renal function back to baseline (5) Leukocytosis Conclusion/Plan: No findings c/w infection, no fever, hemodynamically stable, lactate not measured, no bandemeia, suspect related to volume depletion. recheck in am suspect will improve weith volume - Lab Results Fish Bones: 07/03/18 05:25 07/03/18 05:25 - Diagnostic Imaging Results Diagnostic Imaging Results Comments: Chest X ray 06/28; no acute cardiopulmonary abnormality
[2018-07-02] MEDS ORDERED: SODIUM CHLORIDE 0.9% 1,000 ML IV SCH (15:00)
[2018-07-02] MEDS: SODIUM CHLORIDE FLUSH 0.9% 10 ML SYRINGE IVP SCH (16:00)
[2018-07-02] MEDS ORDERED: ONDANSETRON 4 MG/2 ML VIAL IVP PRN (20:09)
[2018-07-02] MEDS ORDERED: PROCHLORPERAZINE INJ 10 MG in SODIUM CHLORIDE 0.9% 50 ML IV PRN (22:17)
[2018-07-02] MEDS: SODIUM CHLORIDE 0.9% 1,000 ML IV SCH (22:45)
[2018-07-02] MEDS: PANTOPRAZOLE 40 MG VIAL IV SCH (23:49)
[2018-07-02] MEDS: GI COCKTAIL 120 ML BOTTLE PO PRN (23:59)
--- NOTE | 2018-07-03 00:22 | Ultrasound Report ---
Reason: SOHAN, hx prostate cA , eval 4 hydroneph, ? obstruct Procedure Date: 07/02/2018 Accession Number: [id number] / [id number] Procedure: US - Retroperitoneal CPT Code: FULL RESULT: EXAM: RENAL ULTRASOUND EXAM DATE: 07/02/2018 10:44 PM. CLINICAL HISTORY: Acute kidney injury. History of prostate cancer. COMPARISON: None. TECHNIQUE: Real-time scanning was performed with static images obtained. FINDINGS: Right Kidney: 12.9 x 6.1 x 5.6 cm. No mass, stone, or hydronephrosis seen. Mildly echogenic. Left Kidney: 12.0 x 5.4 x 4.9 cm. No mass, stone, or hydronephrosis seen. Mildly echogenic. Bladder: Bilateral jets seen. The bladder volume was 244 cc. Patient was not able to void. Other: None. IMPRESSION: 1. No hydronephrosis seen. 2. Bilateral ureteral jets were seen in the urinary bladder. 3. Kidneys appear somewhat echogenic. This could represent medical renal disease. RADIA
[2018-07-03] MEDS: SODIUM CHLORIDE FLUSH 0.9% 10 ML SYRINGE IVP SCH ×3 (05:28→15:32)
[2018-07-03] MEDS: SODIUM CHLORIDE 0.9% 1,000 ML IV SCH ×4 (05:29→19:34)
[2018-07-03 06:36] LABS: CALCIUM 8.5 mg/dL (8.5-10.3); CREATININE 4.7 mg/dL (0.6-1.2)
[2018-07-03 07:06] LABS: HGB - HEMOGLOBIN 13.7 g/dL (14.0-18.0); MEAN CORPUSCULAR HEMOGLOBIN 30.7 pg (27.0-31.0); MEAN CORPUSCULAR HGB CONC 34.5 g/dL (32.0-36.0); MEAN CORPUSCULAR VOLUME 88.8 fL (80.0-94.0); MEAN PLATELET VOLUME 7.9 fL (7.4-11.4); RED BLOOD COUNT 4.47 10^6/uL (4.70-6.10); RED CELL DISTRIBUTION WIDTH 14.3 % (12.0-15.0); WHITE BLOOD COUNT 11.4 x10^3/uL (4.8-10.8)
[2018-07-03] MEDS: GI COCKTAIL 120 ML BOTTLE PO PRN ×4 (07:35→22:02)
[2018-07-03] MEDS ORDERED: POLYETHYLENE GLYCOL 3350 17 GM PACKET PO SCH (09:00)
[2018-07-03] MEDS: PANTOPRAZOLE 40 MG VIAL IV SCH (09:38)
--- NOTE | 2018-07-03 14:25 | XRAY Report ---
Reason: eval for possible air fluid levels Procedure Date: 07/03/2018 Accession Number: [id number] / [id number] Procedure: XR - Abdomen 2 View X-Ray CPT Code: 80221 FULL RESULT: EXAM: ABDOMEN RADIOGRAPHY EXAM DATE: 07/03/2018 10:14 AM. CLINICAL HISTORY: Bowel obstruction. COMPARISON: ABDOMEN 1 VIEW 01/30/2015 11:35 AM. TECHNIQUE: 2 views. FINDINGS: Lung Bases: Unremarkable. Bowel Gas Pattern: Within normal limits. No dilated loops or abnormal fluid levels. Free Air: None. Other: Brachii therapy seeds are seen in the prostate gland. Fixation hardware is noted in the proximal right femur. Minor scoliosis and mild degenerative changes of the spine is seen. IMPRESSION: No acute findings. No air-fluid levels. RADIA
[2018-07-03] MEDS ORDERED: traMADol 50 MG TABLET PO ONE (15:49)
--- NOTE | 2018-07-03 15:54 | PROVIDER PROGRESS NOTE ---
Subjective - Prog Note Date Prog Note Date: 07/03/18 Prog Note Time: 15:52 (seen several times today) - Subjective Pt reports feeling: Improved (slightly improved, he describes a generalized abdominal discomfort, denies that it is epigastric , although belching uncomfortable, not localized, + relief w/ loose BM earlier, no vomiting today,) Current Medications - Current Medications Current Medications: Active Medications Sodium Chloride (Normal Saline 0.9%) 1,000 mls @ 150 mls/hr IV .Q6H40M [facility] Last Admin: 07/03/18 12:15 Dose: 150 mls/hr Multi-Ingredient Mouthwash/Gargle () 30 ml PO Q4HR PRN PRN Reason: Abdominal Pain Last Admin: 07/03/18 13:50 Dose: 30 ml Ondansetron HCl (Zofran Inj) 4 mg IVP Q4HR PRN PRN Reason: Nausea / Vomiting Last Admin: 07/02/18 20:21 Dose: 4 mg Pantoprazole Sodium (Protonix) 40 mg IV DAILY [facility] Last Admin: 07/03/18 09:38 Dose: 40 mg Polyethylene Glycol (Miralax) 17 gm PO DAILY [facility] Last Admin: 07/03/18 09:38 Dose: Not Given Polyethylene Glycol (Miralax) 17 gm PO DAILY PRN PRN Reason: Bowel Protocol Sodium Chloride (Normal Saline Flush 0.9%) 10 ml IVP PRN PRN PRN Reason: NEEDED PER PROVIDER ORDERS Sodium Chloride (Normal Saline Flush 0.9%) 10 ml IVP 0100,0900,1700 [facility] Last Admin: 07/03/18 15:32 Dose: Not Given Tramadol HCl (Ultram) 50 mg PO Q4HR PRN PRN Reason: PAIN Gabapentin [Neurontin] 300 mg PO BID 03/05/18 traMADol [Ultram] 50 mg PO TID PRN 03/05/18 Mv-Mn/FA/Vit K/Lycop/Lut/Coq10 [Daily Multivitamin Capsule] 1 each PO DAILY 03/11/18 Albuterol Sulf [Ventolin Hfa Inhaler] 2 puffs INH Q4HR PRN 07/02/18 Lisinopril [Zestril] 10 mg PO DAILY 07/02/18 Triamterene/Hydrochlorothiazid [Triamterene-Hctz 37.5-25 mg Cp] 1 each PO DAILY 07/02/18 Objective - Vital Signs/Intake & Output Reviewed Vital Signs: Yes Vital Signs: Vital Signs x48h Temp Pulse Resp BP Pulse Ox 07/03/18 15:43 36.5 C 88 24 150/80 H 97 07/03/18 08:00 36.5 C 96 18 145/70 H 95 Intake & Output: Intake & Output 06/30/18 07/01/18 07/02/18 07/03/18 23:59 23:59 23:59 23:59 Intake Total 4093.20 2600 Output Total 201 1525 Balance 3892.20 1075 - Objective General Appearance: positive: No acute distress, Alert Eyes Bilateral: positive: Normal inspection, Other (nonmuddy sclera) ENT: positive: Other (moist mucous membranese) Respiratory: positive: No respiratory distress, Breath sounds nml Cardiovascular: positive: Regular rate & rhythm, No murmur Abdomen: positive: Other (nondistended, soft, + Bowel sounds, no localized tenderness, denies epigastric tenderness, no RBT, no guarding) Skin: positive: Warm, Dry Extremities: negative: Pedal edema Neurologic/Psychiatric: positive: Oriented x3, Mood/affect nml - Lab Results Fish Bones: 07/03/18 05:25 07/03/18 16:53 Other Labs: Lab Results x24hrs 07/03/18 07/03/18 07/03/18 Range/Units 05:25 05:25 05:25 WBC 11.4 H (4.8-10.8) x10^3/uL RBC 4.47 L (4.70-6.10) 10^6/uL Hgb 13.7 L (14.0-18.0) g/dL Hct 39.7 L (42.0-52.0) % MCV 88.8 (80.0-94.0) fL MCH 30.7 (27.0-31.0) pg MCHC 34.5 (32.0-36.0) g/dL RDW 14.3 (12.0-15.0) % Plt Count 283 (130-450) 10^3/uL MPV 7.9 (7.4-11.4) fL Sodium 138 (135-145) mmol/L Potassium 4.9 (3.5-5.0) mmol/L Chloride 116 H (101-111) mmol/L Carbon Dioxide 12 L* (21-32) mmol/L Anion Gap 10.0 (6-13) BUN 148 H* (6-20) mg/dL Creatinine 4.7 H (0.6-1.2) mg/dL Estimated GFR (MDRD) 13 L (>89) Glucose 114 H (70-100) mg/dL Calcium 8.5 (8.5-10.3) mg/dL PTH Intact 166 H (12-88) pg/mL - Diagnostic Imaging Diagnostic Imaging Results: positive: Final report reviewed Diagnostic Imaging Comments: 2 view abdomen; Gs pattern within normal limits, no dilated loops or abnormal fluid levels Retroperitoneal ultrasound; No hydronephrosis, bilateral ureteral jets seen in urinary bladder, Kidnesy appear somewhat echogenic, Could represent medical re nal disease Assessment/Plan - Problem List (1) Acute kidney injury Impression: (1) Acute kidney injury Conclusion/Plan: continues to improve with IVF 184/6.8>> 173/6.1 >> 148/4.7 most consistent with prerenal w/ volume depletion , GI losses (diarrhea last week) and continued to take his ACEI/ HCTZ no hydronephrosis on U/S U/A showed concentrated urine, no casts, no evident infection or proteinuria no significant lyte abnormality (no hyper K, no elevated Ca Ultrasound no hydronephrosis, hypoechogenic "could" indicate chronic medical disase( as noted last Cr in system 10/2017 1.1 voiding with IVF / no s/s of volume overload 07/02 Most recent labs are from October 2017, so , difficult to tell if this is acute; related to recent ? viral illness last week Work up thus far suggestive of prerenal SOHAN due to acute ?viral illness, and had Gi losses last week s well w/ diarhea last week/ not taking PO well, BUt contininuing to take ACEI and HCTZ THere are RARE case reports of SOHAN w/ Doxycycline which he took this week but DOUBT cause (can cause elvated BUN but doubt contributing to this case) No findings suggesive of volume overload to suggest CKD / Demonstrating some response to IV volume repletion Check renal ultrasound (hisotry of CA Prostate to r/o obstructive ur opathy)>>>>>No hydronephrosis Continue IVF IF not continuing to improve w/ volume will send urine lytes (e.g Na, Cr ) check urine microscopic ? casts Recheck in AM HOLD HCTZ and ACEI! No NSAIDs (not taking at home) Do not see need to check echo re: ? poor systolic function as exam/ history oth erwise NOT suggestive of CHF/HFrEF 2. Hypochloremic metabolic acidosis due to SOHAN Improving w/IVF/ nongap acidosis now (? any contribution of starvation ketosis to bicarb as was taking poor PO this week?) 3. 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 5.VTE prophylaxis; no medical (Rx) given reduced GFR SCD's (6) Hypertension Conclusion/Plan: reasonable control holding ACI, HCTZ due to SOHAN allow relative hypertension for renal perfusion (7) Peripheral neuropathy Conclusion/Plan: Holding gabapentin given reduced GFR Likely will be able to resume at home dose once renal function back to baseline (2) Hypertension Qualifiers: Hypertension type: other secondary hypertension Qualified Code(s): I15.8 - Other secondary hypertension
[2018-07-03] MEDS: POLYETHYLENE GLYCOL 3350 17 GM PACKET PO PRN (16:11)
[2018-07-03 17:36] LABS: CALCIUM 8.5 mg/dL (8.5-10.3); CREATININE 4.2 mg/dL (0.6-1.2); PHOSPHORUS 3.6 mg/dL (2.5-4.6)
[2018-07-04] MEDS: SODIUM CHLORIDE FLUSH 0.9% 10 ML SYRINGE IVP SCH ×3 (00:58→19:01)
[2018-07-04] MEDS: SODIUM CHLORIDE 0.9% 1,000 ML IV SCH ×3 (03:37→20:23)
[2018-07-04 05:46] LABS: HGB - HEMOGLOBIN 13.4 g/dL (14.0-18.0); MEAN CORPUSCULAR HEMOGLOBIN 30.6 pg (27.0-31.0); MEAN CORPUSCULAR HGB CONC 34.2 g/dL (32.0-36.0); MEAN CORPUSCULAR VOLUME 89.6 fL (80.0-94.0); MEAN PLATELET VOLUME 7.7 fL (7.4-11.4); RED BLOOD COUNT 4.37 10^6/uL (4.70-6.10); RED CELL DISTRIBUTION WIDTH 14.1 % (12.0-15.0); WHITE BLOOD COUNT 8.5 x10^3/uL (4.8-10.8)
[2018-07-04 06:12] LABS: CALCIUM 8.6 mg/dL (8.5-10.3); CREATININE 3.5 mg/dL (0.6-1.2)
[2018-07-04] MEDS ORDERED: traMADol 50 MG TABLET PO ONE (08:00)
[2018-07-04] MEDS: PANTOPRAZOLE 40 MG VIAL IV SCH (08:19)
--- NOTE | 2018-07-04 14:09 | PROVIDER PROGRESS NOTE ---
Subjective - Prog Note Date Prog Note Date: 07/04/18 - Subjective Pt reports feeling: Improved Subjective: pt report he feel much better. He has no complaint now. Current Medications - Current Medications Current Medications: Active Medications Sodium Chloride (Normal Saline 0.9%) 1,000 mls @ 125 mls/hr IV .Q8H [facility] Last Admin: 07/04/18 11:46 Dose: 125 mls/hr Multi-Ingredient Mouthwash/Gargle () 30 ml PO Q4HR PRN PRN Reason: Abdominal Pain Last Admin: 07/03/18 22:02 Dose: 30 ml Ondansetron HCl (Zofran Inj) 4 mg IVP Q4HR PRN PRN Reason: Nausea / Vomiting Last Admin: 07/02/18 20:21 Dose: 4 mg Pantoprazole Sodium (Protonix) 40 mg IV DAILY [facility] Last Admin: 07/04/18 08:19 Dose: 40 mg Polyethylene Glycol (Miralax) 17 gm PO DAILY PRN PRN Reason: Bowel Protocol Last Admin: 07/03/18 16:11 Dose: 17 gm Sodium Chloride (Normal Saline Flush 0.9%) 10 ml IVP PRN PRN PRN Reason: NEEDED PER PROVIDER ORDERS Sodium Chloride (Normal Saline Flush 0.9%) 10 ml IVP 0100,0900,1700 [facility] Last Admin: 07/04/18 08:19 Dose: 10 ml Gabapentin [Neurontin] 300 mg PO BID 03/05/18 traMADol [Ultram] 50 mg PO TID PRN 03/05/18 Mv-Mn/FA/Vit K/Lycop/Lut/Coq10 [Daily Multivitamin Capsule] 1 each PO DAILY 03/11/18 Albuterol Sulf [Ventolin Hfa Inhaler] 2 puffs INH Q4HR PRN 07/02/18 Lisinopril [Zestril] 10 mg PO DAILY 07/02/18 Triamterene/Hydrochlorothiazid [Triamterene-Hctz 37.5-25 mg Cp] 1 each PO DAILY 07/02/18 Objective - Vital Signs/Intake & Output Reviewed Vital Signs: Yes Vital Signs: Vital Signs x48h Temp Pulse Resp BP Pulse Ox 07/04/18 08:00 36.9 C 83 18 148/77 H 94 Intake & Output: Intake & Output 07/01/18 07/02/18 07/03/18 07/04/18 23:59 23:59 23:59 23:59 Intake Total 4093.20 4713.833 2490.000 Output Total 201 1825 2975 Balance 3892.20 2888.833 -485.000 - Objective General Appearance: positive: No acute distress, Alert. negative: Lethargic Eyes Bilateral: positive: Normal inspection, PERRL, No lid inflammation, Conjunctivae nml ENT: positive: ENT inspection nml, Pharynx nml, No signs of dehydration. negative: Purulent nasal drainage, Pharyngeal erythema, Oral lesions Neck: positive: Nml inspection, Thyroid nml, No JVD, Trachea midline. negative: Thyromegaly, Lymphadenopathy (R), Lymphadenopathy (L), Stiff neck, Swelling/bruising, Tracheal deviation Respiratory: positive: Chest non-tender, No respiratory distress, Breath sounds nml. negative: Wheezes, Rales, Rhonchi Cardiovascular: positive: Regular rate & rhythm, No murmur, No gallop. negative: Irregularly irregular, Extrasystoles, Tachycardia, Bradycardia, JVD present, Systolic murmur, Diastolic murmur Peripheral Pulses: 2+ Radial (R), 2+ Radial (L), 2+ Dorsalis pedis (R), 2+ Dorsalis pedis (L) Abdomen: positive: Non-tender, No organomegaly, Nml bowel sounds, No distention. negative: Tenderness, Guarding, Rebound Back: positive: Nml inspection. negative: CVA tenderness (R), CVA tenderness (L) Skin: positive: Color nml, No rash, Warm, Dry. negative: Cyanosis, Diaphoresis, Pallor Extremities: positive: Non-tender, Full ROM, Nml appearance. negative: Calf tenderness, Joint swelling, Rajani's sign/cords Neurologic/Psychiatric: positive: Oriented x3, Motor nml, Sensation nml, Mood /affect nml. negative: Weakness, Sensory loss, Facial droop, Slurred/abnml speech, Depressed mood/affect - Lab Results Fish Bones: 07/04/18 05:05 07/04/18 05:05 Other Labs: Lab Results x24hrs 07/04/18 07/04/18 07/03/18 Range/Units 05:05 05:05 16:53 WBC 8.5 (4.8-10.8) x10^3/uL RBC 4.37 L (4.70-6.10) 10^6/uL Hgb 13.4 L (14.0-18.0) g/dL Hct 39.1 L (42.0-52.0) % MCV 89.6 (80.0-94.0) fL MCH 30.6 (27.0-31.0) pg MCHC 34.2 (32.0-36.0) g/dL RDW 14.1 (12.0-15.0) % Plt Count 306 (130-450) 10^3/uL MPV 7.7 (7.4-11.4) fL Sodium 141 140 (135-145) mmol/L Potassium 4.9 4.7 (3.5-5.0) mmol/L Chloride 117 H 116 H (101-111) mmol/L Carbon Dioxide 14 L 16 L (21-32) mmol/L Anion Gap 10.0 8.0 (6-13) BUN 97 H* 134 H* (6-20) mg/dL Creatinine 3.5 H 4.2 H (0.6-1.2) mg/dL Estimated GFR (MDRD) 18 L 14 L (>89) Glucose 94 101 H (70-100) mg/dL Calcium 8.6 8.5 (8.5-10.3) mg/dL Phosphorus 3.6 (2.5-4.6) mg/dL ABX Reporting Has patient been on IV antibiotics over the past 48 hours?: No Sepsis Event Note (H) - Evaluation Current Stage of Sepsis: Ruled out Assessment/Plan - Problem List (1) Acute kidney injury Impression: great improved. creat is down to 3.5 from 6.8. BUN is 97 from 184. pt feel much better. pt also has good urine, yesterday has over 1800cc. US of kidney indicates Echogenic, advise pt followup rn wound care after d/c for further management. continue IVF of NS continue lab monitor continue hold nephrological toxical agent 2. Hypochloremic metabolic acidosis due to SOHAN stable and improved 3. Leukocytosis resolved 4.Abdominal Pain: resolved 5.VTE prophylaxis; no medical (Rx) given reduced GFR SCD's (6) Hypertension Conclusion/Plan: stable continue hold of HCTZ and Lisinopril (7) Peripheral neuropathy Conclusion/Plan: Holding gabapentin, given reduced GFR
[2018-07-04] MEDS: GI COCKTAIL 120 ML BOTTLE PO PRN (14:59)
[2018-07-05] MEDS: SODIUM CHLORIDE 0.9% 1,000 ML IV SCH (04:04)
[2018-07-05 06:06] LABS: HGB - HEMOGLOBIN 12.9 g/dL (14.0-18.0); MEAN CORPUSCULAR HEMOGLOBIN 31.5 pg (27.0-31.0); MEAN CORPUSCULAR HGB CONC 35.4 g/dL (32.0-36.0); MEAN CORPUSCULAR VOLUME 89.1 fL (80.0-94.0); MEAN PLATELET VOLUME 7.5 fL (7.4-11.4); RED BLOOD COUNT 4.11 10^6/uL (4.70-6.10); WHITE BLOOD COUNT 11.4 x10^3/uL (4.8-10.8)
[2018-07-05 06:17] LABS: CALCIUM 8.5 mg/dL (8.5-10.3); CREATININE 2.6 mg/dL (0.6-1.2)
[2018-07-05] MEDS: SODIUM CHLORIDE FLUSH 0.9% 10 ML SYRINGE IVP SCH ×3 (06:33→17:17)
[2018-07-05] MEDS ORDERED: SODIUM POLYSTYRENE SULFONATE 15 GM/60 ML BOTTLE PO ONE (07:25)
[2018-07-05] MEDS: PANTOPRAZOLE 40 MG VIAL IV SCH (08:17)
[2018-07-05] MEDS: DEXTROSE 5%-0.45% NACL 1,000 ML IV SCH ×2 (08:18→17:57)
[2018-07-05] MEDS: POLYETHYLENE GLYCOL 3350 17 GM PACKET PO PRN (08:18)
[2018-07-05] MEDS: traMADol 50 MG TABLET PO SCH (12:31)
[2018-07-05 12:42] LABS: MUDS CUTOFF CONCENTRATIONS CUTOFF CONC BELOW:
[2018-07-05 13:01] LABS: AMPHETAMINE SCREEN,URINE NEGATIVE (NEGATIVE); BENZODIAZEPINES SCREEN, URINE NEGATIVE (NEGATIVE); COCAINE SCREEN URINE NEGATIVE (NEGATIVE); METHAMPHETAMINES SCREEN, URINE NEGATIVE (NEGATIVE); OPIATE SCREEN, URINE NEGATIVE (NEGATIVE); PROPOXYPHENE SCREEN, URINE NEGATIVE (NEGATIVE); TRICYCLIC ANTIDEPRESSANT,URINE NEGATIVE (NEGATIVE)
[2018-07-05 13:02] LABS: METHADONE SCREEN, URINE NEGATIVE (NEGATIVE); OXYCODONE SCREEN, URINE NEGATIVE (NEGATIVE)
--- NOTE | 2018-07-05 14:07 | CT Report ---
Reason: consistence abdominal pain Procedure Date: 07/05/2018 Accession Number: [id number] / [id number] Procedure: CT - Abdomen/Pelvis WO CPT Code: FULL RESULT: EXAM: CT ABDOMEN AND PELVIS (CT KUB) EXAM DATE: 07/05/2018 01:36 PM. CLINICAL HISTORY: Mid Abdominal pain. COMPARISONS: ABDOMEN/PELVIS W/ 05/29/2016 5:22 PM ABDOMEN/PELVIS W01/18/2016 10:28 PM. TECHNIQUE: Routine axial helical CT imaging was performed through the abdomen and pelvis without IV contrast. Reconstructions: Coronal and sagittal. In accordance with CT protocol optimization, one or more of the following dose reduction techniques were utilized for this exam: automated exposure control, adjustment of mA and/or KV based on patient size, or use of iterative reconstructive technique. FINDINGS: Lung Bases: Patchy tree-in-bud opacities in the left lower lobe. Right Kidney/Ureter: No stones, hydronephrosis, or hydroureter. No perinephric fat stranding. Left Kidney/Ureter: No stones, hydronephrosis, or hydroureter. No perinephric fat stranding. Other Solid Organs: Noncontrast images of the solid organs are grossly unremarkable. Gallbladder/Bile Ducts: Unremarkable. Peritoneal Cavity: No free fluid, free air or chasity adenopathy. No evidence for small bowel obstruction or inflammation. Normal-appearing appendix. Colonic diverticulosis without evidence for acute diverticulitis. Pelvic Organs: No bladder stones or wall thickening. Radiation seeds within the prostate. Vasculature: Moderate atherosclerotic calcifications of the infrarenal abdominal aorta, without evidence for aneurysm. Other: None. IMPRESSION: 1. Tree-in-bud opacities left lower lobe, suggestive of infectious/inflammatory process. 2. No evidence for acute intra-abdominal process on noncontrast CT. RADIA
[2018-07-05] MEDS ORDERED: cefTRIAXone 1 GM VIAL IVP SCH (14:49)
--- NOTE | 2018-07-05 14:59 | PROVIDER PROGRESS NOTE ---
Subjective - Prog Note Date Prog Note Date: 07/05/18 - Subjective Pt reports feeling: Worse Subjective: pt report he has some abdominal pain, discomfort, and nausea. he state he had this feeling when he was admitted, now the symptoms returned again. He denies fever, chill, shortness of breath, chest pain, diarrhea. he report he had a bowel movement on yesterday. Current Medications - Current Medications Current Medications: Active Medications Azithromycin (Zithromax) 250 mg PO DAILY [facility] Dextrose/Sodium Chloride (D5.45ns) 1,000 mls @ 125 mls/hr IV .Q8H [facility] Last Admin: 07/05/18 08:18 Dose: 125 mls/hr Ceftriaxone Sodium 1 gm/ (Sodium Chloride) 100 mls @ 200 mls/hr IV DAILY [facility] Multi-Ingredient Mouthwash/Gargle () 30 ml PO Q4HR PRN PRN Reason: Abdominal Pain Last Admin: 07/04/18 14:59 Dose: 30 ml Ondansetron HCl (Zofran Inj) 4 mg IVP Q4HR PRN PRN Reason: Nausea / Vomiting Last Admin: 07/02/18 20:21 Dose: 4 mg Pantoprazole Sodium (Protonix) 40 mg IV DAILY [facility] Last Admin: 07/05/18 08:17 Dose: 40 mg Polyethylene Glycol (Miralax) 17 gm PO DAILY PRN PRN Reason: Bowel Protocol Last Admin: 07/05/18 08:18 Dose: 17 gm Sodium Chloride (Normal Saline Flush 0.9%) 10 ml IVP PRN PRN PRN Reason: NEEDED PER PROVIDER ORDERS Sodium Chloride (Normal Saline Flush 0.9%) 10 ml IVP 0100,0900,1700 [facility] Last Admin: 07/05/18 08:17 Dose: 10 ml Tramadol HCl (Ultram) 50 mg PO DAILY [facility] Last Admin: 07/05/18 12:31 Dose: 50 mg Gabapentin [Neurontin] 300 mg PO BID 03/05/18 traMADol [Ultram] 50 mg PO TID PRN 03/05/18 Mv-Mn/FA/Vit K/Lycop/Lut/Coq10 [Daily Multivitamin Capsule] 1 each PO DAILY 03/11/18 Albuterol Sulf [Ventolin Hfa Inhaler] 2 puffs INH Q4HR PRN 07/02/18 Lisinopril [Zestril] 10 mg PO DAILY 07/02/18 Triamterene/Hydrochlorothiazid [Triamterene-Hctz 37.5-25 mg Cp] 1 each PO DAILY 07/02/18 Objective - Vital Signs/Intake & Output Reviewed Vital Signs: Yes Vital Signs: Vital Signs x48h Temp Pulse Resp BP Pulse Ox 07/05/18 07:57 36.6 C 76 18 143/92 H 96 Intake & Output: Intake & Output 07/02/18 07/03/18 07/04/18 07/05/18 23:59 23:59 23:59 23:59 Intake Total 4093.20 4713.833 4791.667 1968.75 Output Total 201 1825 3525 950 Balance 3892.20 2888.833 7056.299 7407.75 - Objective General Appearance: positive: No acute distress, Alert. negative: Lethargic Eyes Bilateral: positive: Normal inspection, PERRL, No lid inflammation, Conjunctivae nml ENT: positive: ENT inspection nml, Pharynx nml, No signs of dehydration. negative: Purulent nasal drainage, Pharyngeal erythema, Oral lesions Neck: positive: Nml inspection, Thyroid nml, No JVD, Trachea midline. negative: Thyromegaly, Lymphadenopathy (R), Lymphadenopathy (L), Stiff neck, Swelling/bruising, Tracheal deviation Respiratory: positive: Chest non-tender, No respiratory distress, Breath sounds nml. negative: Wheezes, Rales, Rhonchi Cardiovascular: positive: Regular rate & rhythm, No murmur, No gallop. negative: Irregularly irregular, Extrasystoles, Tachycardia, Bradycardia, JVD present, Systolic murmur, Diastolic murmur Peripheral Pulses: 2+ Radial (R), 2+ Radial (L), 2+ Dorsalis pedis (R), 2+ Dorsalis pedis (L) Abdomen: positive: Non-tender, No organomegaly, Nml bowel sounds, No distention. negative: Tenderness, Guarding, Rebound, Abnml bowel sounds, Bruit Back: positive: Nml inspection. negative: CVA tenderness (R), CVA tenderness (L) Skin: positive: Color nml, No rash, Warm, Dry. negative: Cyanosis, Diaphoresis, Pallor Extremities: positive: Non-tender, Full ROM, Nml appearance. negative: Calf tenderness, Joint swelling, Rajani's sign/cords Neurologic/Psychiatric: positive: Oriented x3, Motor nml, Sensation nml, Mood/affect nml. negative: Weakness, Sensory loss, Facial droop, Slurred/abnml speech, Depressed mood/affect - Lab Results Fish Bones: 07/05/18 05:15 07/05/18 05:15 Other Labs: Lab Results x24hrs 07/05/18 07/05/18 07/05/18 Range/Units 12:30 05:15 05:15 WBC 11.4 H (4.8-10.8) x10^3/uL RBC 4.11 L (4.70-6.10) 10^6/uL Hgb 12.9 L (14.0-18.0) g/dL Hct 36.6 L (42.0-52.0) % MCV 89.1 (80.0-94.0) fL MCH 31.5 H (27.0-31.0) pg MCHC 35.4 (32.0-36.0) g/dL RDW 14.0 (12.0-15.0) % Plt Count 300 (130-450) 10^3/uL MPV 7.5 (7.4-11.4) fL Sodium 140 (135-145) mmol/L Potassium 5.3 H (3.5-5.0) mmol/L Chloride 115 H (101-111) mmol/L Carbon Dioxide 14 L (21-32) mmol/L Anion Gap 11.0 (6-13) BUN 85 H* (6-20) mg/dL Creatinine 2.6 H (0.6-1.2) mg/dL Estimated GFR (MDRD) 25 L (>89) Glucose 105 H (70-100) mg/dL Calcium 8.5 (8.5-10.3) mg/dL Urine Opiates Screen NEGATIVE (NEGATIVE) Ur Oxycodone Screen NEGATIVE (NEGATIVE) Urine Methadone Screen NEGATIVE (NEGATIVE) Ur Propoxyphene Screen NEGATIVE (NEGATIVE) Ur Barbiturates Screen NEGATIVE (NEGATIVE) Ur Tricyclics Screen NEGATIVE (NEGATIVE) Ur Phencyclidine Scrn NEGATIVE (NEGATIVE) Ur Amphetamine Screen NEGATIVE (NEGATIVE) U Methamphetamines Scrn NEGATIVE (NEGATIVE) U Benzodiazepines Scrn NEGATIVE (NEGATIVE) Urine Cocaine Screen NEGATIVE (NEGATIVE) U Cannabinoids Screen POSITIVE H (NEGATIVE) ABX Reporting Has patient been on IV antibiotics over the past 48 hours?: Yes Sepsis Event Note (H) - Evaluation Current Stage of Sepsis: Ruled out Assessment/Plan - Problem List (1) Acute kidney injury Impression: 07/05 kidney function continue improved. Creatinine today is 2.6, BUN is 86 contincontinue IVF continue lab monitor continue hold nephrological toxical agent great improved. creat is down to 3.5 from 6.8. BUN is 97 from 184. pt feel much better. pt also has good urine, yesterday has over 1800cc. US of kidney indicates Echogenic, advise pt followup zoology teacher after d/c for further management. continue IVF of NS continue lab monitor continue hold nephrological toxical agent 2. Hypochloremic metabolic acidosis due to SOHAN stable and improved 3. Leukocytosis 07/05 increase to 11.4, CT of abdomen/pelvis reveals left lower lobe infection. treated with antibiotics Rocephin and low dosage of Azithromycin continue lab monitor, vital monitor resolved 4.Abdominal Pain: 07/05 pt report abdominal pain, discomfort, nausea today morning. CT of abd/pelvis reveals unremarkable for abdomen/pelvis but find left lower lobe infection pain control treat with antibiotics resolved 5.VTE prophylaxis; 07/05 pt has high risk of DVT prophylaxis, start on lower dosage of Heparin no medical (Rx) given reduced GFR SCD's (6) Hypertension Conclusion/Plan: stable continue hold of HCTZ and Lisinopril (7) Peripheral neuropathy Conclusion/Plan: Holding gabapentin, given reduced GFR (8) hyperkalemia pt has K at 5.3, likely from his reduced kidney. pt is asymptomatic for cardiac events switch IVF from NS to D5 05/14 NS continue monitor with lab test (9) Pneumonia elevated WBC, CT reveal pneumonia, pt report discomfort, and nausea treat with Rocephin and Azithromycin vital and lab monitor
[2018-07-05] MEDS: AZITHROMYCIN 250 MG TABLET PO SCH (15:06)
[2018-07-05] MEDS: cefTRIAXone 1 GM in SODIUM CHLORIDE 0.9% MINIBAG 100 ML IV SCH (15:06)
[2018-07-05 15:26] LABS: CALCIUM 8.4 mg/dL (8.5-10.3); CREATININE 2.3 mg/dL (0.6-1.2)
[2018-07-05] MEDS: HEPARIN 5,000 UNIT/ML VIAL SUBQ SCH (20:21)
[2018-07-05] MEDS ORDERED: oxyCODONE 5 MG TABLET PO SCH (23:00)
[2018-07-05] MEDS: DICYCLOMINE 10 MG CAPSULE PO SCH (23:29)
[2018-07-06] MEDS: SODIUM CHLORIDE FLUSH 0.9% 10 ML SYRINGE IVP SCH ×2 (00:34→09:46)
[2018-07-06] MEDS: DEXTROSE 5%-0.45% NACL 1,000 ML IV SCH ×2 (01:32→09:25)
[2018-07-06 05:40] LABS: BASOPHILS % (AUTO) 0.4 %; EOSINOPHILS # (AUTO) 0.3 10^3/uL (0.0-0.7); EOSINOPHILS % (AUTO) 3.2 %; LYMPHOCYTES # (AUTO) 1.9 10^3/uL (1.5-3.5); LYMPHOCYTES % (AUTO) 17.9 %; MEAN CORPUSCULAR HEMOGLOBIN 30.3 pg (27.0-31.0); MEAN CORPUSCULAR HGB CONC 33.8 g/dL (32.0-36.0); MEAN CORPUSCULAR VOLUME 89.6 fL (80.0-94.0); MEAN PLATELET VOLUME 7.2 fL (7.4-11.4); MONOCYTES # (AUTO) 1.1 10^3/uL (0.0-1.0); MONOCYTES % (AUTO) 10.5 %; NEUTROPHILS # (AUTO) 7.4 10^3/uL (1.5-6.6); PLT - PLATELET COUNT 328 10^3/uL (130-450); RED BLOOD COUNT 4.28 10^6/uL (4.70-6.10); WHITE BLOOD COUNT 10.8 x10^3/uL (4.8-10.8)
[2018-07-06 05:50] LABS: CALCIUM 8.5 mg/dL (8.5-10.3); CREATININE 2.1 mg/dL (0.6-1.2)
[2018-07-06] MEDS ORDERED: PANTOPRAZOLE 40 MG TABLET PO SCH (07:00)
[2018-07-06] MEDS ORDERED: DRONABINOL 2.5 MG CAPSULE PO SCH (07:00)
[2018-07-06 08:15] VITALS: BP 138/86
[2018-07-06] MEDS: HEPARIN 5,000 UNIT/ML VIAL SUBQ SCH (09:20)
[2018-07-06] MEDS: cefTRIAXone 1 GM in SODIUM CHLORIDE 0.9% MINIBAG 100 ML IV SCH (09:22)
[2018-07-06] MEDS: traMADol 50 MG TABLET PO SCH (09:23)
[2018-07-06] MEDS: AZITHROMYCIN 250 MG TABLET PO SCH (09:23)
[2018-07-06] MEDS: DICYCLOMINE 10 MG CAPSULE PO SCH (09:36)
--- NOTE | 2018-07-06 10:22 | Discharge Plan ---
Discharge Plan Disposition: 01 Home, Self Care Condition: Poor Prescriptions: Cephalexin [Keflex] 250 mg PO BID #10 capsule Diet: Regular Activity Restrictions: Activity as Tolerated Shower Restrictions: No (fall precaution) Instruction Topics: Cephalexin tablets or capsules, Dehydration, Injury Acute Kidney Dc Additional Instructions or Follow Up instructions: You may followup your PCP in one week, see regional hr manager in one to two weeks. You were found to have kidney failure at the admission. Now your kidney function has been gradual steadily improved. Please keep yourself hydration, followup see regional hr manager to continue the management. You also were found to have lung infection/inflammation, you are prescribe antibiotics now. Should your symptoms return or worsen, you may present ER, call 911 or your PCP for help. No Smoking: If you smoke, Please STOP! Call for help. Follow-up with: Angel Corral MD [Primary Care Provider] -
--- NOTE | 2018-07-06 10:45 | DISCHARGE SUMMARY ---
Discharge Summary Discharge Date: 07/06/18 Discharging Provider: DYKES Primary Care Provider: Dr. Corral Condition at Discharge: Poor Discharge Disposition: Home, Self Care Discharge Facility Name: home - DIAGNOSES Admission Diagnoses: (1) Acute kidney injury (2) Hypertension (3) History of prostate cancer (4) Peripheral neuropathy (5) Leukocytosis Discharge Diagnoses with Status of Each Condition: (1) Acute kidney injury steadily improved his renal function. Creatinine is 2.1 today from 6.8 admission. Pt feel much better and request to be d/c. pt is provided Dr. Borges, tuberculosis specialist, office location and phone number information, advise pt followup closely. pt is advised to keep hydration hold of HCTZ and Lisinopril for restore of kidney function. pt's BP is stable. 2. Hypochloremic metabolic acidosis due to SOHAN resolved 3. Leukocytosis resolved 4.Abdominal Pain: resolved 5.VTE prophylaxis; d/c (6) Hypertension stable, hold of HCTZ and Lisinopril, followup PCP (7) Peripheral neuropathy stable, resume home meds gabapentin (8) hyperkalemia resolved (9) Pneumonia pt has 96% sat on room air. WBC is becoming normal. pt is prescribed Keflex to finish the antibiotics course. 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 He was diagnosed with a viral syndroe in Ed 06/28 ([facility] Rapid antigen test negative, no molecular test her) and was discharged with tessalon for cough, albuterol inhaler prn, and doxycycline. (He states now that he also had bad diarrhea at that time which has resolved) Of note He did not have labs drawn at that time, CXR neg acute at that time, no hypotension, nor fever atthat time He presents to the ED today with persistent anorexia "not eating or drinking much", no nausa / vomiting , no fever, chills, no persistent diarrhea, "just hasnt felt better since 06/28 "thought I was dehydrated". No near syncope or l ight headedness Labs in the ED remarkable for acute kidney injury with BUn/Cr 184/ 6.8, (Of note on 11/04/17 Cr 1.1)normal potassium, hyponatremia Na 131, Co213 w/ initial anion gap 22, WBC 16K w/o left shift, no findings c/w infection, Urnalysis in ED w/SG 1.025, small occult blood, no sigynificant pyuria, nor bacuturia microscopic not done (will order to check for casts) RE chronic medical problems that put patient at risk; no DM, controlled HTN (and as above recent normal Cr) Of note re culprit meds; Patient is on thiazide and ACEI Denies NSAIDS, no other nephrotoxins, After 3 liters in ED , he is demonstrating some improvement w/ BuN/Cr 173/6.1, and althoguh bicarb still 13 after 3L, Anion gap w/ chloride repletion closing; now 14 No known CHF that would cause poor forward flow (Echo 2014; EF 55-65%, mild concentric LVH, Could not adequatly asses fro WMA, no significant vlvular dysfxn at that time - HOSPITAL COURSE Hospital Course: pt was admitted for anorexia, weakness. pt was found to have acute kidney failure, creatinine 6.8 and BUN 184. Pt was treated with hydration and hold nephrological toxical agent. Pt's renal function has been steadily improved. Pt was also found to have slight elevated WBC, and pneumonia at CT. pt was treated with antibiotics. pt is prescribed antibiotics to finish the course. pt is advised to followup tuberculosis specialist closely. Dr. Borges tuberculosis specialist's contact information was given to pt. - ALLERGIES Allergies/Adverse Reactions: Allergies Allergy/AdvReac Type Severity Reaction Status Date / Time ketorolac tromethamine * Allergy Severe anaphylaxis, Verified 06/28/18 13:24 [From Toradol] loss of consciousness sulfamethoxazole Allergy Rash Verified 06/28/18 13:24 [From Septra] trimethoprim [From Janra] Allergy Rash Verified 06/28/18 13:24 - MEDICATIONS Home Medications: Ambulatory Orders Medication Instructions Recorded Confirmed Gabapentin [Neurontin] 300 mg PO BID 03/05/18 07/02/18 traMADol [Ultram] 50 mg PO TID PRN 03/05/18 07/02/18 Mv-Mn/FA/Vit K/Lycop/Lut/Coq10 1 each PO DAILY 03/11/18 07/02/18 [Daily Multivitamin Capsule] Albuterol Sulf [Ventolin Hfa 2 puffs INH Q4HR PRN 07/02/18 07/02/18 Inhaler] Cephalexin [Keflex] 250 mg PO BID #10 capsule 07/06/18 - PHYSICAL EXAM AT DISCHARGE General Appearance: positive: No acute distress, Alert. negative: Lethargic Eyes Bilateral: positive: Normal inspection, PERRL, No lid inflammation, Conjunctivae nml ENT: positive: ENT inspection nml, Pharynx nml, No signs of dehydration. negative: Purulent nasal drainage, Pharyngeal erythema, Oral lesions Neck: positive: Thyroid nml, No JVD, Trachea midline. negative: Thyromegaly, Lymphadenopathy (R), Lymphadenopathy (L), Stiff neck, Swelling/bruising, Tracheal deviation Respiratory: positive: Chest non-tender, No respiratory distress, Breath sounds nml. negative: Wheezes, Rales, Rhonchi Cardiovascular: positive: Regular rate & rhythm, No murmur, No gallop. negative: Irregularly irregular, Extrasystoles, Tachycardia, Bradycardia, JVD present, Systolic murmur, Diastolic murmur Peripheral Pulses: positive: 2+ Abdomen: positive: Non-tender, No organomegaly, Nml bowel sounds, No distention. negative: Tenderness, Guarding, Rebound Back: positive: Nml inspection. negative: CVA tenderness (R), CVA tenderness (L) Skin: positive: Color nml, No rash, Warm, Dry. negative: Cyanosis, Diaphoresis, Pallor Extremities: positive: Non-tender, Full ROM, Nml appearance. negative: Calf tenderness, Joint swelling, Rajani's sign/cords Neurologic/Psychiatric: positive: Oriented x3, Motor nml, Sensation nml, Mood/affect nml. negative: Weakness, Sensory loss, Facial droop, Slurred/abnml speech, Depressed mood/affect - LABS Result Diagrams: 07/06/18 05:10 07/06/18 05:10 - SEPSIS Current Stage of Sepsis: Ruled out - FOLLOW UP Follow Up: You may followup your PCP in one week, see tuberculosis specialist in one to two weeks. You were found to have kidney failure at the admission. Now your kidney function has been gradual steadily improved. Please keep yourself hydration, followup see tuberculosis specialist to continue the management. You also were found to have lung infection/inflammation, you are prescribe antibiotics now. Should your symptoms return or worsen, you may present ER, call 911 or your PCP for help. - TIME SPENT Time Spent in Discharge (Minutes): 60
== END 2018-07-06 11:25 | disposition home or self-care (01) | DRG 682 ==
LOC: ED 09:43 → MS2 14:06
PROVIDERS: ADMIT Nurse Practitioner; ATTEND Nurse Practitioner Gerontology
DX: N17.9 Acute kidney failure, unspecified (principal); J18.9 Pneumonia, unspecified organism; E87.2 Acidosis; E87.1 Hypo-osmolality and hyponatremia; M81.0 Age-related osteoporosis without current pathological fracture; G89.29 Other chronic pain; M54.9 Dorsalgia, unspecified; Z88.2 Allergy status to sulfonamides; Z87.891 Personal history of nicotine dependence; E86.0 Dehydration; R10.9 Unspecified abdominal pain; I10 Essential (primary) hypertension; G62.9 Polyneuropathy, unspecified; E87.5 Hyperkalemia; R63.0 Anorexia; Z85.46 Personal history of malignant neoplasm of prostate
CPT/HCPCS: 36415; 51798; 74019; 74176; 76770; 80048; 80053; 80306; 81001; 81003; 83690; 83970; 84100; 85025; 85027; 87086; 94640; 96360; 96361; 99283; 99284

== ENCOUNTER 2021-05-24 10:51 | Day surgery (SDC) | payer OTHER ==
--- NOTE | 2021-05-24 11:13 | ANESTHESIA ---
Pre-Anesthesia VS, & Labs - Diagnosis screening - Procedure colonoscopy Height: 5 ft 10 in Weight (kg): 86 kg Body Mass Index: 27.1 BMI Classification: Overweight - NPO >8 hours - Lab Results Lab results reviewed: Yes Home Medications and Allergies traMADol [Ultram] 50 mg PO TID PRN 03/05/18 Mv-Min/Folic/Vit K/Lycop/Coq10 [Daily Multivitamin Capsule] 1 each PO DAILY 03/11/18 Allergies/Adverse Reactions: Allergies Allergy/AdvReac Type Severity Reaction Status Date / Time ketorolac tromethamine * Allergy Severe anaphylaxis, Verified 06/28/18 13:24 [From Toradol] loss of consciousness sulfamethoxazole Allergy Rash Verified 06/28/18 13:24 [From Septra] trimethoprim [From Septra] Allergy Rash Verified 06/28/18 13:24 Anes History & Medical History - Anesthetic History Anesthesia Complications: reports: No previous complications Family history of Anesthesia Complications: Denies Family history of Malignant Hyperthermia: Denies - Medical History Cardiovascular: reports: None, Hypertension Pulmonary: reports: None, Other Gastrointestinal: reports: Ulcers, Other Urinary: reports: None, Other Neuro: reports: None Musculoskeletal: reports: Osteoporosis, Chronic back pain Endocrine/Autoimmune: reports: None Blood Disorders: reports: None Skin: reports: None Smoking Status: Current every day smoker - Surgical History General: reports: Gastric surgery, Colonoscopy Urologic: reports: Prostatic surgery Orthopedic: reports: Other Exam General: Alert, Oriented x3, Cooperative Dental: WNL Mouth Opening: Greater than 4 Fingerbreadths Neck Mobility: Normal Mallampati classification: I Thyromental Distance: 4-6 cm Respiratory: Lungs clear, Normal breath sounds, No respiratory distress Cardiovascular: Regular rate Neurological: Normal speech Mental/Cognitive Status: Alert/Oriented X3, Normal for patient Cognitive Status: Within normal limits Plan Anesthesia Type: Total IV Consent for Procedure(s) Verified and Reviewed: Yes Code Status: Attempt Resuscitation ASA classification: 2-Mild systemic disease Is this case an emergency?: No
[2021-05-24] MEDS ORDERED: PROPOFOL 500 MG/50 ML 0 MG/0 ML VIAL ONE (11:24)
[2021-05-24] MEDS ORDERED: MIDAZOLAM 2 MG/2 ML VIAL ONE (11:25)
[2021-05-24] MEDS ORDERED: PROPOFOL 500 MG/50 ML 500 MG/50 ML VIAL ONE (11:35)
[2021-05-24] MEDS ORDERED: LACTATED RINGERS 1,000 ML IV ONE ×2 (11:45→12:36)
--- NOTE | 2021-05-24 12:53 | ANESTHESIA POST OP EVALUATION ---
Anesthesia Post Eval - Post Anesthesia Eval Vitals: Last Vital Signs Temp 36.6 C 05/24/21 12:35 Pulse 68 05/24/21 12:35 Resp 14 05/24/21 12:35 BP 84/53 L 05/24/21 12:35 Pulse Ox 97 05/24/21 12:35 CV Function Including HR & BP: Stable Pain Control: Satisfactory Nausea & Vomiting: Negative Mental Status: Baseline Respiratory Status: Airway Patent Hydration Status: Satisfactory Anesthesia Complications: None
[2021-05-24 13:12] VITALS: BP 118/81
== END 2021-05-24 10:52 | disposition home or self-care (01) ==
LOC: SDS 10:51
PROVIDERS: ATTEND Surgery
DX: Z12.11 Encounter for screening for malignant neoplasm of colon (principal); K57.30 Diverticulosis of large intestine without perforation or abscess without bleeding; K64.8 Other hemorrhoids; F17.200 Nicotine dependence, unspecified, uncomplicated; Z86.010 Personal history of colon polyps
CPT/HCPCS: 45378; J7120

== ENCOUNTER 2021-07-08 08:03 | Emergency (ER) | payer OTHER ==
--- NOTE | 2021-07-08 08:25 | ED Physician Documentation ---
PD HPI CHEST PAIN - Stated complaint Stated Complaint: F/U LABS - Chief complaint Chief Complaint: General - History obtained from History obtained from: Patient, Other (primary care office called and conveyed that his Creatinine was elevated and Potassium 6.7 on labs done yesterday. Referred to ER for eval.) - History of Present Illness Timing - onset: How many weeks ago (1 week of abnormal potassium/kidney function. Had labs a week ago routinely and K 6.1, Creatinine 1.74. Repeated yesterday and Cr 1.85, and K 6.6 Referred to ER for eval by PMD.) Timing - onset during: Other (patient feels okay without chest pain, edema, dyspnea, palpitations. No general weakness.) Quality: No: Pressure, Tightness Associated symptoms: No: Shortness of air, Nausea, Feeling faint / dizzy, Palpitations Similar symptoms before: Has not had sx before Recently seen: Clinic Review of Systems Constitutional: denies: Fever, Chills Nose: denies: Rhinorrhea / runny nose, Congestion Throat: denies: Sore throat Cardiac: denies: Chest pain / pressure, Palpitations, Pedal edema, Calf pain Respiratory: denies: Dyspnea, Cough GI: denies: Nausea, Vomiting, Diarrhea : reports: Other (denies feeling of incomplete emptying.). denies: Dysuria, Frequency Neurologic: denies: Generalized weakness, Near syncope PD PAST MEDICAL HISTORY - Past Medical History Past Medical History: Yes Cardiovascular: Hypertension, High cholesterol Respiratory: None, Other Neuro: None Endocrine/Autoimmune: None GI: Ulcers, Other : None, Other HEENT: None Psych: None Musculoskeletal: Osteoporosis, Chronic back pain Derm: None Other Past Medical History: prostate cancer - Past Surgical History Past Surgical History: Yes General: Gastric surgery, Colonoscopy Ortho: Other - Present Medications Home Medications: Ambulatory Orders Medication Instructions Recorded Confirmed traMADol [Ultram] 50 mg PO TID PRN 03/05/18 07/08/21 Mv-Min/Folic/Vit K/Lycop/Coq10 1 each PO DAILY 03/11/18 07/08/21 [Daily Multivitamin Capsule] Atorvastatin [Lipitor] 20 mg PO DAILY 05/24/21 07/08/21 Lisinopril [Zestril] 10 mg PO DAILY 05/24/21 07/08/21 Triamterene/Hdyrochlor 37.5/25 1 each PO DAILY 07/08/21 07/08/21 [Dyazide] - Allergies Allergies/Adverse Reactions: Allergies Allergy/AdvReac Type Severity Reaction Status Date / Time ketorolac tromethamine * Allergy Severe anaphylaxis, Verified 07/08/21 08:08 [From Toradol] loss of consciousness sulfamethoxazole Allergy Rash Verified 07/08/21 08:08 [From Septra] trimethoprim [From Septra] Allergy Rash Verified 07/08/21 08:08 - Living Situation Living Situation: reports: Alone () Living Arrangement: reports: At home - Social History Does the pt smoke?: Yes Smoking Status: Former smoker Does the pt drink ETOH?: No Does the pt have substance abuse?: No - Immunizations Immunizations are current?: Yes - POLST Patient has POLST: No PD ED PE NORMAL - Vitals Vital signs reviewed: Yes - General General: Alert and oriented X 3, No acute distress, Well developed/nourished - Neck Neck: Supple, no meningeal sign, No adenopathy, No JVD - Cardiac Cardiac: RRR, No murmur - Respiratory Respiratory: Clear bilaterally - Abdomen Abdomen: Soft, Non tender, Other (no bladder fullness on palpation. ) - Back Back: No CVA TTP - Derm Derm: Normal color, Warm and dry - Extremities Extremities: No deformity, No tenderness to palpate, No edema, No calf tenderness / cord - Neuro Neuro: Alert and oriented X 3, No motor deficit, Normal speech Results - Vitals Vitals: Vital Signs - 24 hr 07/08/21 07/08/21 07/08/21 08:08 08:30 09:44 Temperature 36.4 C L 36.9 C Heart Rate 65 66 63 Respiratory 16 12 14 Rate Blood Pressure 140/76 H 137/83 H 127/78 O2 Saturation 94 100 100 Oxygen O2 Source Room air - EKG (time done) 08:20 Rate: Rate (enter#) (64) Rhythm: NSR [place]: Normal Intervals: Normal FL QRS: Normal Ischemia: Normal ST segments. No: ST elevation c/w ischemia, ST depression - Labs Labs: Laboratory Tests 07/08/21 07/08/21 08:35 08:35 WBC 7.4 RBC 3.97 L Hgb 12.1 L Hct 35.9 L MCV 90.4 MCH 30.5 MCHC 33.7 RDW 13.2 Plt Count 201 MPV 9.5 Neut # (Auto) 4.7 Lymph # (Auto) 1.8 [place] # (Auto) 0.6 Eos # (Auto) 0.2 Baso # (Auto) 0.1 Absolute Nucleated RBC 0.00 Nucleated RBC % 0.0 Sodium 136 Potassium 4.9 Chloride 103 Carbon Dioxide 24 Anion Gap 9.0 BUN 45 H Creatinine 2.0 H Estimated GFR (MDRD) 34 L Glucose 116 H Calcium 9.0 Magnesium 1.8 Total Bilirubin 0.7 AST 28 ALT 32 Alkaline Phosphatase 52 Total Protein 7.2 Albumin 4.6 Globulin 2.6 Albumin/Globulin Ratio 1.8 Lipase 40 PD MEDICAL DECISION MAKING - ED course Complexity details: reviewed results (normal vitals and HR here. ), considered differential (elevated Cr/K on labs yesterday but recheck today is normal K=4.9. Presume some hemolysis yesterday. Creatinine is higher. Will want to change from Lisinopril to other BP med. But new cholesterol med the past month, and Epocrates lists renal failure as potential severe effect, so will have him stop.), d/w patient Departure - Departure Disposition: Home, Self Care Clinical Impression: Elevated serum creatinine Condition: Stable Record reviewed to determine appropriate education?: Yes Comments: Low-salt diet but stay well-hydrated generally. Your Creatinine kidney function measure is elevating over the past week but not too bad as yet. Your potassium level is normal on testing today, so may have been a false reading with the blood in the testtube on yesterday's reading. For the next several days, hold your lisinopril, HCTZ and also your cholesterol medicine. The losartan and HCTZ can have an effect on your kidney function which is elevated over the last week. I realize you have been on them for a while but they will affect your kidney function once it starts being off. I looked up your cholesterol medicines generally and they also can cause impairment of the kidney function. Since this is a new medicine for you in the last month, I would be inclined to think that this is affecting your kidney function, so we will stop your cholesterol medicine as well. See Dr. Lynch on Saturday as planned. At that point they can reassess you and decide which new blood pressure medicine to have you on that does not affect kidney function. I presume they will keep you off of your cholesterol medicine. They might resume the HCTZ diuretic or might opt for a different one, but it would likely be okay to be back on it once kidney function improves. So the summary actions: 1. Hold all your medicines (lisinopril, HCTZ, cholesterol medicine). 2. See Dr. Lynch on Saturday as planned 3. Have them recheck your kidney function again then 4. Presume or restart a different blood pressure medicine and hold your cholesterol medicine Discharge Date/Time: 07/08/21 09:45
[2021-07-08] MEDS ORDERED: SODIUM CHLORIDE 0.9% 1,000 ML IV STA (08:43)
[2021-07-08 08:48] LABS: BASOPHILS # (AUTO) 0.1 10^3/uL (0.0-0.1); BASOPHILS % (AUTO) 0.7 %; EOSINOPHILS # (AUTO) 0.2 10^3/uL (0.0-0.7); EOSINOPHILS % (AUTO) 2.7 %; HCT - HEMATOCRIT 35.9 % (42.0-52.0); HGB - HEMOGLOBIN 12.1 g/dL (14.0-18.0); LYMPHOCYTES # (AUTO) 1.8 10^3/uL (1.5-3.5); LYMPHOCYTES % (AUTO) 24.6 %; MEAN CORPUSCULAR HEMOGLOBIN 30.5 pg (27.0-31.0); MEAN CORPUSCULAR HGB CONC 33.7 g/dL (32.0-36.0); MEAN CORPUSCULAR VOLUME 90.4 fL (80.0-94.0); MEAN PLATELET VOLUME 9.5 fL (7.4-11.4); MONOCYTES # (AUTO) 0.6 10^3/uL (0.0-1.0); MONOCYTES % (AUTO) 8.5 %; NEUTROPHILS # (AUTO) 4.7 10^3/uL (1.5-6.6); NEUTROPHILS % (AUTO) 63.2 %; PLT - PLATELET COUNT 201 10^3/uL (130-450); RED BLOOD COUNT 3.97 10^6/uL (4.70-6.10); RED CELL DISTRIBUTION WIDTH 13.2 % (12.0-15.0); WHITE BLOOD COUNT 7.4 x10^3/uL (4.8-10.8)
[2021-07-08 09:02] LABS: ALBUMIN 4.6 g/dL (3.2-5.5); ALBUMIN/GLOBULIN RATIO 1.8 (1.0-2.2); BILIRUBIN,TOTAL 0.7 mg/dL (0.2-1.0); MAGNESIUM 1.8 mg/dL (1.7-2.8); POTASSIUM 4.9 mmol/L (3.5-5.0); TOTAL PROTEIN 7.2 g/dL (6.7-8.2)
[2021-07-08 09:44] VITALS: BP 127/78
== END 2021-07-08 09:45 | disposition home or self-care (01) ==
LOC: ED 08:03
DX: R94.4 Abnormal results of kidney function studies (principal); I10 Essential (primary) hypertension; Z87.891 Personal history of nicotine dependence
CPT/HCPCS: 36415; 80053; 83690; 83735; 85025; 93005; 96360; 99283

== ENCOUNTER 2022-03-21 07:01 | Outpatient (CLI) | payer OTHER ==
--- NOTE | 2022-03-21 15:34 | CT Report ---
PROCEDURE: Low Dose Lung Cancer Screen INDICATIONS: HIST OF SMOKING TECHNIQUE: Noncontrast low-dose axial images were acquired from the pulmonary apices to the posterior costophren ic angles. Multiplanar MIP reformats were then reconstructed. For radiation dose reduction, the follo wing was used: automated exposure control, adjustment of mA and/or kV according to patient size. COMPARISON: None. FINDINGS: Image quality: Excellent. Lungs and pleura: There is mild emphysematous change noted throughout both lungs. There is some mild scarring in the right middle lobe and left lingula. I do not see evidence for focal lung infiltrate or pulmonary mass lesion. Mediastinum: Heart size is normal. No pericardial effusion. No mediastinal adenopathy by size crit eria. There is a 4.5 cm ascending thoracic aortic aneurysm. Esophagus is normal in caliber. No hiat al hernia. Bones and chest wall: No suspicious bony lesions. No vertebral body compression fractures. No axil edith or supraclavicular adenopathy by size criteria. Abdomen: Visualized upper abdomen solid organs and bowel loops appear normal in the absence of contr ast. IMPRESSION: 1. Mild emphysematous changes noted throughout both lungs. 2. Mild scarring in the right middle lobe and left lingula. 3. 4.5 cm ascending thoracic aortic aneurysm. 4. Atherosclerotic vascular calcification. Reviewed by: Jose Grant MD on 03/21/2022 3:32 PM PST Approved by: Jose Grant MD on 03/21/2022 3:32 PM PST Station ID: [id number]
== END 2022-03-21 07:02 | disposition home or self-care (01) ==
LOC: DI 07:01
PROVIDERS: ATTEND Nurse Practitioner Family
DX: Z12.2 Encounter for screening for malignant neoplasm of respiratory organs (principal); Z87.891 Personal history of nicotine dependence; J43.9 Emphysema, unspecified; I71.40 Abdominal aortic aneurysm, without rupture, unspecified; I70.90 Unspecified atherosclerosis

== ENCOUNTER 2022-04-19 08:05 | Outpatient (CLI) | payer OTHER ==
--- NOTE | 2022-04-19 09:48 | XRAY Report ---
PROCEDURE: Hips 2V BILAT INDICATIONS: HIP JOINT PX TECHNIQUE: 2 views views of both hips were acquired. COMPARISON: None FINDINGS: Bones: No acute fractures or dislocations. No suspicious bony lesions. The visualized pelvic ring appears intact. Old posttraumatic changes involving the patient's left femur is noted. There is a fractured intramedullary sathish involving the patient's right femur. Soft tissues: No suspicious soft tissue calcifications or masses. Prostate seed implants are noted. IMPRESSION: No evidence for acute osseous abnormality involving the hips or pelvis. 2. Prostate seed implants. 3. Old posttraumatic changes involving the patient's left proximal femur with a fractured femur sathish n oted in place. Reviewed by: Jose Grant MD on 04/19/2022 9:47 AM PST Approved by: Jose Grant MD on 04/19/2022 9:47 AM PST Station ID: [id number]
== END 2022-04-19 08:06 | disposition home or self-care (01) ==
LOC: DI 08:05
PROVIDERS: ATTEND Family Medicine
DX: T84.114A Breakdown (mechanical) of internal fixation device of right femur, initial encounter (principal); M25.551 Pain in right hip; M25.552 Pain in left hip; Z92.3 Personal history of irradiation

== ENCOUNTER 2023-05-25 14:01 | Outpatient (CLI) | payer OTHER ==
--- NOTE | 2023-05-25 16:54 | Ultrasound Report ---
PROCEDURE: Renal (Retroperitoneal) INDICATIONS: CKD TECHNIQUE: Real-time scanning was performed of the retroperitoneal organs, with image documentation. COMPARISON: 07/02/2018 FINDINGS: Kidneys: Kidneys are normal in size. Right kidney measures 9.7 cm long; left kidney measures 11.2 c m long. Right renal cortical thickness is 0.5 cm; left renal cortical thickness is 0.8 cm. No solid masses, hydronephrosis, or nephrolithiasis. Bladder: Pre-void bladder volume is 77 mL. Post-void residual is 14 mL. Pre-void images demonstrat e no intraluminal masses or stones. On pre-void images, both ureteral jets are noted with color Dopp ler interrogation. (Of note, ureteral jets may not be detectable in up to 25% of cases due to insuff icient differences in specific gravity between ureteral and bladder urine). Miscellaneous: No free abdominal fluid. IMPRESSION: Normal renal ultrasound. Reviewed by: Andrea Pal MD on 05/25/2023 3:53 PM AKST Approved by: Andrea Pal MD on 05/25/2023 3:53 PM AKST Station ID: [id number]
== END 2023-05-25 14:02 | disposition home or self-care (01) ==
LOC: DI 14:01
PROVIDERS: ATTEND Internal Medicine Nephrology
DX: N18.32 Chronic kidney disease, stage 3b (principal)